=== PATIENT | female | born 1955 | race Caucasian/White ===

== ENCOUNTER 2018-10-10 22:53 | Emergency (ER) | payer OTHER ==
--- NOTE | 2018-10-10 23:22 | ED ---
Syncope HPI - General Chief Complaint: Syncope Stated Complaint: Syncope Time Seen by Provider: 10/10/18 23:05 Source: patient Mode of arrival: wheelchair Limitations: no limitations - History of Present Illness Initial Comments: This patient is a 63-year-old woman brought to have evaluation of a syncopal episode. The patient relates that she had been at a wedding tonight, when she developed what she calls a charley horse of her left leg. She states that she was sitting in a chair attempting to stretch the left leg when she started feeling lightheaded and then did briefly pass out. She states that her son had lowered her to the ground from the chair. She did not have any fall or trauma. She woke after a brief time with no postictal period. Patient did not have chest pain, palpitations, dyspnea or diaphoresis. She states that she has pre viously had leg cramps somewhat to this going back for 2-3 months. She is not having any leg symptoms. Patient states she is back at her baseline and denies any symptoms now. MD Complaint: loss of consciousness Onset/Timin -: hour(s) Prodromal Symptoms: lightheaded -: second(s) Witnessed: yes - by bystander Injuries Sustained Associated with Event: None Current Symptoms: back to baseline Context: at rest Treatments Prior to Arrival: none - Related Data Home Medications Medication Instructions Recorded Confirmed metFORMIN HCL ER [Glucophage Xr] 500 mg PO W/SUPPER 10/10/18 10/10/18 Allergies Allergy/AdvReac Type Severity Reaction Status Date / Time No Known Allergies Allergy Verified 10/10/18 23:21 Review of Systems ROS Statement: Those systems with pertinent positive or pertinent negative responses have been documented in the HPI. ROS Other: All systems not noted in ROS Statement are negative. Constitutional: Denies: fever, chills, weakness Respiratory: Denies: cough, dyspnea Cardiovascular: Reports: as per HPI, syncope. Denies: chest pain, palpitations, orthopnea, edema Gastrointestinal: Denies: abdominal pain, nausea, vomiting, diarrhea, constipation, melena, hematochezia Genitourinary: Denies: dysuria, frequency, hematuria Musculoskeletal: Reports: as per HPI, myalgia. Denies: back pain Skin: Denies: rash Neurological: Denies: headache, weakness, numbness, paresthesias, confusion Past Medical History Past Medical History: Diabetes Mellitus Additional Past Medical History / Comment(s): HX OF POLPS, History of Any Multi-Drug Resistant Organisms: None Reported Past Surgical History: Hysterectomy Past Anesthesia/Blood Transfusion Reactions: No Reported Reaction Past Psychological History: No Psychological Hx Reported Smoking Status: Never smoker Past Alcohol Use History: Occasional Past Drug Use History: None Reported - Past Family History Mother Family Medical History: Cancer Additional Family Medical History / Comment(s): LUNG General Exam Limitations: no limitations General appearance: alert, in no apparent distress Head exam: Present: atraumatic, normocephalic Eye exam: Present: normal appearance. Absent: scleral icterus, conjunctival injection ENT exam: Present: normal oropharynx Neck exam: Present: normal inspection Respiratory exam: Present: normal lung sounds bilaterally. Absent: respiratory distress, wheezes, rales, rhonchi, stridor Cardiovascular Exam: Present: regular rate, normal rhythm, normal heart sounds. Absent: systolic murmur, diastolic murmur, rubs, gallop GI/Abdominal exam: Present: soft. Absent: distended, tenderness, guarding, rebound, rigid Extremities exam: Present: normal inspection, normal capillary refill. Absent: tenderness, pedal edema, calf tenderness Back exam: Present: normal inspection. Absent: CVA tenderness (R), CVA tenderness (L) Neurological exam: Present: alert, oriented X3, CN II-XII intact. Absent: motor sensory deficit Skin exam: Present: warm, dry, intact, normal color. Absent: rash Course Vital Signs 10/10/18 22:58 Temperature 98.1 F Pulse Rate 85 Respiratory 17 Rate Blood Pressure 204/86 O2 Sat by Pulse 97 Oximetry EKG Findings - EKG Results: EKG: interpreted by ERMD, sinus rhythm (Rate 85 bpm), normal axis, normal QRS, normal ST/T Medical Decision Making - Medical Decision Making Discussed results with patient's and discussed admission for telemetry monitoring and serial cardiac enzymes, but the patient states that she continues to feel well and would like to go home. She will follow with her physician. Discussed having a stress test. Discussed return parameters. Patient denying urinary tract infection symptoms therefore will culture urine and have her follow with her physician - Lab Data Result diagrams: 10/10/18 23:50 10/10/18 23:50 Lab Results 10/10/18 10/10/1819 Range/Units 23:50 23:50 23:50 WBC 10.0 (3.8-10.6) k/uL RBC 4.93 (3.80-5.40) m/uL Hgb 13.8 (11.4-16.0) gm/dL Hct 41.9 (34.0-46.0) % MCV 84.9 (80.0-100.0) fL MCH 28.1 (25.0-35.0) pg MCHC 33.0 (31.0-37.0) g/dL RDW 13.6 (11.5-15.5) % Plt Count 202 (150-450) k/uL Neutrophils % 75 % Lymphocytes % 17 % Monocytes % 5 % Eosinophils % 1 % Basophils % 0 % Neutrophils # 7.5 (1.3-7.7) k/uL Lymphocytes # 1.7 (1.0-4.8) k/uL Monocytes # 0.5 (0-1.0) k/uL Eosinophils # 0.1 (0-0.7) k/uL Basophils # 0.0 (0-0.2) k/uL PT 10.1 (9.0-12.0) sec INR 0.9 (<1.2) APTT 22.1 (22.0-30.0) sec D-Dimer 0.29 (<0.60) mg/L FEU Sodium 141 (137-145) mmol/L Potassium 4.3 (3.5-5.1) mmol/L Chloride 104 (98-107) mmol/L Carbon Dioxide 26 (22-30) mmol/L Anion Gap 11 mmol/L BUN 19 H (7-17) mg/dL Creatinine 0.89 (0.52-1.04) mg/dL Est GFR (CKD-EPI)AfAm 80 (>60 ml/min/1.73 sqM) Est GFR (CKD-EPI)NonAf 69 (>60 ml/min/1.73 sqM) Glucose 208 H (74-99) mg/dL Calcium 9.6 (8.4-10.2) mg/dL Total Bilirubin 0.3 (0.2-1.3) mg/dL AST 23 (14-36) U/L ALT 27 (9-52) U/L Alkaline Phosphatase 65 (38-126) U/L Troponin I (0.000-0.034) ng/mL Total Protein 6.8 (6.3-8.2) g/dL Albumin 4.2 (3.5-5.0) g/dL Urine Color Urine Appearance (Clear) Urine pH (5.0-8.0) Ur Specific [place] (1.001-1.035) Urine Protein (Negative) Urine Glucose (UA) (Negative) Urine Ketones (Negative) Urine Blood (Negative) Urine Nitrite (Negative) Urine Bilirubin (Negative) Urine Urobilinogen (<2.0) mg/dL Ur Leukocyte Esterase (Negative) Urine RBC (0-5) /hpf Urine WBC (0-5) /hpf Ur Squamous Epith Cells (0-4) /hpf Calcium Oxalate Crystal (None) /hpf Urine Bacteria (None) /hpf Urine Mucus (None) /hpf Serum Alcohol <10 mg/dL 10/10/18 10/10/18 Range/Units 23:50 23:50 WBC (3.8-10.6) k/uL RBC (3.80-5.40) m/uL Hgb (11.4-16.0) gm/dL Hct (34.0-46.0) % MCV (80.0-100.0) fL MCH (25.0-35.0) pg MCHC (31.0-37.0) g/dL RDW (11.5-15.5) % Plt Count (150-450) k/uL Neutrophils % % Lymphocytes % % Monocytes % % Eosinophils % % Basophils % % Neutrophils # (1.3-7.7) k/uL Lymphocytes # (1.0-4.8) k/uL Monocytes # (0-1.0) k/uL Eosinophils # (0-0.7) k/uL Basophils # (0-0.2) k/uL PT (9.0-12.0) sec INR (<1.2) APTT (22.0-30.0) sec D-Dimer (<0.60) mg/L FEU Sodium (137-145) mmol/L Potassium (3.5-5.1) mmol/L Chloride (98-107) mmol/L Carbon Dioxide (22-30) mmol/L Anion Gap mmol/L BUN (7-17) mg/dL Creatinine (0.52-1.04) mg/dL Est GFR (CKD-EPI)AfAm (>60 ml/min/1.73 sqM) Est GFR (CKD-EPI)NonAf (>60 ml/min/1.73 sqM) Glucose (74-99) mg/dL Calcium (8.4-10.2) mg/dL Total Bilirubin (0.2-1.3) mg/dL AST (14-36) U/L ALT (9-52) U/L Alkaline Phosphatase (38-126) U/L Troponin I <0.012 (0.000-0.034) ng/mL Total Protein (6.3-8.2) g/dL Albumin (3.5-5.0) g/dL Urine Color Yellow Urine Appearance Cloudy H (Clear) Urine pH 5.5 (5.0-8.0) Ur Specific [place] 1.026 (1.001-1.035) Urine Protein Trace H (Negative) Urine Glucose (UA) 1+ H (Negative) Urine Ketones Negative (Negative) Urine Blood Negative (Negative) Urine Nitrite Negative (Negative) Urine Bilirubin Negative (Negative) Urine Urobilinogen <2.0 (<2.0) mg/dL Ur Leukocyte Esterase Large H (Negative) Urine RBC 2 (0-5) /hpf Urine WBC 49 H (0-5) /hpf Ur Squamous Epith Cells 6 H (0-4) /hpf Calcium Oxalate Crystal Moderate H (None) /hpf Urine Bacteria Rare H (None) /hpf Urine Mucus Rare H (None) /hpf Serum Alcohol mg/dL Disposition Clinical Impression: Syncope Disposition: HOME SELF-CARE Condition: Good Instructions (If sedation given, give patient instructions): Syncope (ED) Is patient prescribed a controlled substance at d/c from ED?: No Referrals: Yulia Peters MD [Primary Care Provider] - 1-2 days
[2018-10-11 00:11] LABS: Basophils % (A) 0 %; Eosinophils # (A) 0.1 k/uL (0-0.7); Eosinophils % (A) 1 %; HCT 41.9 % (34.0-46.0); HGB 13.8 gm/dL (11.4-16.0); Lymphocytes # (A) 1.7 k/uL (1.0-4.8); Lymphocytes % (A) 17 %; MCH 28.1 pg (25.0-35.0); MCV 84.9 fL (80.0-100.0); Mean Platelet Volume 7.5; Monocytes # (A) 0.5 k/uL (0-1.0); Monocytes % (A) 5 %; Neutrophils # (A) 7.5 k/uL (1.3-7.7); Neutrophils % (A) 75 %; Platelet Count 202 k/uL (150-450); RBC 4.93 m/uL (3.80-5.40); RDW 13.6 % (11.5-15.5)
[2018-10-11 00:24] LABS: ALT 27 U/L (9-52); AST 23 U/L (14-36); African American GFR (CKD) 80 (>60 ml/min/1.73 sqM); Albumin 4.2 g/dL (3.5-5.0); Alcohol <10 mg/dL; Alkaline Phosphatase 65 U/L (38-126); Anion Gap 11 mmol/L; Blood Urea Nitrogen 19 mg/dL (7-17); Calcium 9.6 mg/dL (8.4-10.2); Carbon Dioxide 26 mmol/L (22-30); Chloride 104 mmol/L (98-107); Glucose 208 mg/dL (74-99); Potassium 4.3 mmol/L (3.5-5.1); Sodium 141 mmol/L (137-145); Total Bilirubin 0.3 mg/dL (0.2-1.3); Total Protein 6.8 g/dL (6.3-8.2)
[2018-10-11 00:32] LABS: D-Dimer 0.29 mg/L FEU (<0.60); INR 0.9 (<1.2); Prothrombin Time 10.1 sec (9.0-12.0)
[2018-10-11 00:33] LABS: Appearance,Urine Cloudy (Clear); Bacteria,Urine Rare /hpf; Bilirubin,Urine Negative (Negative); Blood,Urine Negative (Negative); Calcium Oxalate Crystals,Urine Moderate /hpf; Color,Urine Yellow; Glucose,Urine (UA) 1+ (Negative); Ketones,Urine Negative (Negative); Leukocyte Esterase,Urine Large (Negative); Mucus,Urine Rare /hpf; Nitrite,Urine Negative (Negative); PH, Urine 5.5 (5.0-8.0); Partial Thromboplastin Time 22.1 sec (22.0-30.0); Protein,Urine Trace (Negative); RBC,Urine 2 /hpf (0-5); Specific Gravity,Urine 1.026 (1.001-1.035); Squamous Epithelial Cell,Urine 6 /hpf (0-4); Urobilinogen,Urine <2.0 mg/dL (<2.0); WBC,Urine 49 /hpf (0-5)
--- NOTE | 2018-10-11 00:52 | XR ---
EXAM: XR Chest, 1 View CLINICAL HISTORY: syncope TECHNIQUE: Frontal view of the chest. COMPARISON: No relevant prior studies available. FINDINGS: Lungs: Hypoventilatory lungs. Nonspecific left basilar opacity. Pleural space: Unremarkable. No pneumothorax. Heart: Prominent of the cardiomediastinal silhouette is likely in part due to low lung volumes. Mediastinum: See above. Bones/joints: No acute osseous abnormality. IMPRESSION: Hypoventilatory lungs. Probable left basilar atelectasis.
[2018-10-11 02:26] VITALS: BP 145/78
[2018-10-11 02:34] VITALS: PULSE 86; RESP 18; TEMP 97.3
== END 2018-10-11 02:34 | disposition home or self-care (01) ==
LOC: EC 22:53
DX: R55 Syncope and collapse (principal); M62.831 Muscle spasm of calf; E11.9 Type 2 diabetes mellitus without complications; Z79.84 Long term (current) use of oral hypoglycemic drugs
CPT/HCPCS: 36415; 71045; 80053; 80320; 81001; 84484; 85025; 85379; 85610; 85730; 93005; 99284

== ENCOUNTER → 2018-11-03 | Outpatient (CLI) | payer OTHER ==
--- NOTE | 2018-11-04 13:53 | MM ---
Reason for exam: screening (asymptomatic). Last mammogram was performed 1 year and 8 months ago. History: Patient is postmenopausal. Taking estrogen beginning at age 47. Taking progesterone beginning at age 47. Physical Findings: A clinical breast exam by your physician is recommended on an annual basis and results should be correlated with mammographic findings. MG Screening Mammo w CAD Bilateral CC and MLO view(s) were taken. Prior study comparison: March 17, 2017, bilateral MG screening mammo w CAD. January 09, 2015, bilateral MG screening mammo w CAD. There are scattered fibroglandular densities. There is chronic nodularity in the left breast. There is no discrete abnormality. ASSESSMENT: Negative, BI-RAD 1 RECOMMENDATION: Routine screening mammogram of both breasts in 1 year.
== END | disposition home or self-care (01) ==
LOC: RADMAMWWP 08:05
PROVIDERS: ATTEND Family Medicine
DX: Z12.31 Encounter for screening mammogram for malignant neoplasm of breast (principal)
CPT/HCPCS: 77067

== ENCOUNTER → 2018-11-25 | Outpatient (CLI) | payer OTHER ==
[~2018-11-25] MED LIST: REGADENOSON 0.4 MG/5 ML SYRINGE IV ONE
--- NOTE | 2018-11-25 12:32 | NM ---
EXAMINATION TYPE: NM stress lexiscan cardiolite DATE OF EXAM: 11/25/2018 COMPARISON: NONE HISTORY: TECHNIQUE: After the intravenous administration of 10.95 mCi Tc 99m Sestamibi - Cardiolite resting S PECT images acquired 50 minutes post injection. The patient received 0.4mg Lexiscan, 26.6 mCi Tc 99m Sestamibi - Stress images obtained [address] injection FINDINGS: Review of stress and rest SPECT images demonstrate reduced uptake involving the anterior and apical p ortions of the myocardium on stress imaging.. Gated analysis shows normal wall motion with an estima farheen left ventricular ejection fraction of 59 %. IMPRESSION: 1. Asymmetric uptake involving the anterior and anterior apical myocardium on stress imaging may be a rtifactual. Stress-induced ischemia not entirely excluded correlate clinically..
--- NOTE | 2018-11-25 13:06 | EST ---
EXERCISE STRESS DATE OF SERVICE: 11/25/2018 AGE: 63 SEX: Female HT: 5'5" WT: 210 PROTOCOL: Lexiscan Cardiolite STAGE: DURATION OF EXERCISE: HEART RATE REST: 67 BLOOD PRESSURE REST: 171/93 MAXIMUM HEART RATE ACHIEVED: 104 MAXIMUM BLOOD PRESSURE: 183/83 85% MPHR: 100% MPHR: METS: INDICATIONS: CLINICAL INFORMATION: There is an Lexiscan Cardiolite stress test baseline. Baseline heart rate 67 beats per minute. Baseline blood pressure 171/93 mmHg. Baseline 12-lead ECG showed normal sinus rhythm with normal cardiac intervals. Patient received Lexiscan infusion per protocol. She complained of tightness in the chest. There was no ECG evidence for ischemia. No arrhythmias were noted. Nuclear portion of the stress test will be reported separately. MMODL / IJN: [id number] /
== END ==
LOC: RADNMMAIN 08:49
PROVIDERS: ATTEND Family Medicine
DX: R93.1 Abnormal findings on diagnostic imaging of heart and coronary circulation (principal)
CPT/HCPCS: 93017; 78452; A9500; J2785

== ENCOUNTER → 2018-11-30 | Outpatient (CLI) | payer OTHER ==
--- NOTE | 2018-11-30 22:51 | MR ---
EXAMINATION TYPE: MR knee RT wo con DATE OF EXAM: 11/30/2018 COMPARISON: NONE HISTORY: Pain in right knee. In her knee pain for 3 weeks per patient. TECHNIQUE: Multiplanar, multisequence images of the knee is performed without IV contrast. FINDINGS: MEDIAL MENISCUS: Anterior horn is intact without tear. Oblique and horizontal increased signal remotely piloted vehicle controller ior horn medial meniscus extends to inferior articular surface sagittal image 8 LATERAL MENISCUS: Anterior and posterior horns are intact without tear. CRUCIATE LIGAMENTS: The anterior and posterior cruciate ligaments are intact and unremarkable. COLLATERAL LIGAMENTS: The medial collateral ligament and lateral collateral ligament complex are inta ct. Some fluid signal surrounds posterior fibers of the medial collateral ligament extends posteriorl y. EXTENSOR MECHANISM: Visualized quadriceps and patellar tendons are intact. EFFUSION: Small suprapatellar joint effusion. POPLITEAL CYST: Moderate to large size popliteal/matthews cyst measuring over 8.0 cm long axis sagittal image 10. TRICOMPARTMENT SPACES: Tngq-qz-vqgfldty tricompartment joint space loss with mild spurring. CARTILAGE: Significant chondromalacia patella with full-thickness cartilaginous loss and posterior pa tellar pole and adjacent trochlear articulation. BONE MARROW SIGNAL: No focal abnormal marrow signal is appreciated. OTHER: No additional significant abnormality is appreciated. IMPRESSION: 1. Full-thickness tear posterior horn medial meniscus. 2. Mild to moderate tricomponent degenerative changes most prominent patellofemoral compartment as de tailed above. No reactive osseous changes noted. 3. Moderate to large size popliteal cyst. 4. Mild MCL sprain injury. 5. Small suprapatellar joint effusion.
== END | disposition home or self-care (01) ==
LOC: RADMRIMAIN 05:50
PROVIDERS: ATTEND Family Medicine
DX: S83.241A Other tear of medial meniscus, current injury, right knee, initial encounter (principal); M89.8X6 Other specified disorders of bone, lower leg; S83.411A Sprain of medial collateral ligament of right knee, initial encounter

== ENCOUNTER → 2018-12-22 | Outpatient (CLI) | payer OTHER ==
--- NOTE | 2018-12-22 13:00 | XR ---
Right knee HISTORY: Knee pain 3 views of the right knee Correlation to knee MRI dated 11/30/2018 Marginal spurring present at the medial compartment. Remodeling in the medial compartment, joint spac e loss at the patellofemoral joint compatible with underlying osteoarthritis. Suprapatellar increased density compatible with small joint effusion. The meniscal tear extending to the region of the root anchor at the posterior horn seen on MRI not appreciated on plain film. Alignment is maintained. No f racture or dislocation. Small possible loose body present at the level of the intercondylar spines li wing present on MRI. IMPRESSION: Osteoarthritis, small loose bodies, joint effusion, additional findings above.
== END | disposition home or self-care (01) ==
LOC: RADXRMAIN 08:30
PROVIDERS: ATTEND Orthopaedic Surgery
DX: M17.11 Unilateral primary osteoarthritis, right knee (principal)

== ENCOUNTER → 2019-01-25 | Outpatient (CLI) | payer OTHER ==
[2019-01-25 13:13] LABS: Basophils % (A) 0 %; Eosinophils # (A) 0.1 k/uL (0-0.7); Eosinophils % (A) 2 %; HGB 14.5 gm/dL (11.4-16.0); Lymphocytes # (A) 2.2 k/uL (1.0-4.8); Lymphocytes % (A) 37 %; MCH 28.9 pg (25.0-35.0); MCHC 33.1 g/dL (31.0-37.0); MCV 87.4 fL (80.0-100.0); Mean Platelet Volume 6.9; Monocytes # (A) 0.3 k/uL (0-1.0); Monocytes % (A) 5 %; Neutrophils # (A) 3.3 k/uL (1.3-7.7); Neutrophils % (A) 54 %; Platelet Count 194 k/uL (150-450); RBC 5.03 m/uL (3.80-5.40); RDW 13.1 % (11.5-15.5); WBC 6.1 k/uL (3.8-10.6)
[2019-01-25 13:28] LABS: Potassium 4.6 mmol/L (3.5-5.1)
== END | disposition home or self-care (01) ==
LOC: LABPAT 12:10
PROVIDERS: ATTEND Orthopaedic Surgery
DX: Z01.812 Encounter for preprocedural laboratory examination (principal); Z01.818 Encounter for other preprocedural examination; M23.91 Unspecified internal derangement of right knee
CPT/HCPCS: 36415; 80051; 85025

== ENCOUNTER 2019-01-28 11:45 | Day surgery (SDC) | payer OTHER ==
[2019-01-25 15:13] VITALS: BMI 34.9
--- NOTE | 2019-01-27 13:33 | HP ---
HISTORY AND PHYSICAL Surgery is 01/28/2019. Ana Redding is a 63-year-old patient seen with progressive right knee pain. We discussed options for treatment. She elected to proceed with right knee arthroscopy. Consent was obtained. PAST MEDICAL HISTORY: Her past medical history is [id number]-wadbhnnzc diabetes. PAST SURGICAL HISTORY: Hysterectomy. DAILY MEDICATIONS: 1. Metformin. 2. Vitamins. ALLERGIES: None. SOCIAL HISTORY: She denies current tobacco use. PHYSICAL EXAMINATION: Physical evaluation of the right knee: Range of motion 0-130. Mild effusion. Tenderness medial joint line. Positive medial Maxi's. Ligaments stable. Hip rotation without pain. Distal neurovascular exam intact. Right knee radiographs revealed moderate medial compartment osteoarthritis. An MRI of the right knee revealed a medial meniscal tear and osteoarthritic changes. IMPRESSION: 1. Internal derangement right knee with medial meniscal tear. 2. Right knee osteoarthritis. 3. Lek-bfmuzuw-zoncwujvu diabetes. PLAN: Right knee arthroscopy with partial meniscectomy and debridement. MMODL / IJN: [id number] /
[~2019-01-28 11:45] MED LIST changes: +DEXAMETHASONE SOD PHOSPHATE 10 MG/ML 1 ML VIAL IV ONE; +LACTATED RINGERS 1,000 ML IV SCH; +MIDAZOLAM 2 MG/2 ML VIAL IV PRN; +ONDANSETRON 4 MG/2 ML VIAL IVP ONE; -REGADENOSON 0.4 MG/5 ML SYRINGE IV ONE
[2019-01-28] MEDS ORDERED: LIDOCAINE 1% 20 ML VIAL (10MG/ML) FOR IV START INTRADERMA ONE (12:12)
[2019-01-28 12:17] LABS: Glucose,Whole Blood 125 mg/dL (75-99)
[2019-01-28] MEDS ORDERED: LABETALOL 5 MG/ML VIAL MDV IV ONE ×2 (12:29→13:51)
[2019-01-28] MEDS ORDERED: LIDOCAINE 1% INJ 10MG/ML (20 ML MDV) ONE (12:36)
[2019-01-28] MEDS ORDERED: fentaNYL (PF) 50 MCG/ML 2 ML AMP ONE (12:36)
[2019-01-28] MEDS ORDERED: PROPOFOL 10 MG/ML 20 ML VIAL IV ONE (12:36)
[2019-01-28] MEDS ORDERED: MIDAZOLAM 2 MG/2 ML VIAL ONE (12:36)
[2019-01-28] MEDS ORDERED: BUPIVACAINE (PF) 0.25% 30 ML VIAL INTRAARTIC ONE (12:57)
[2019-01-28] MEDS: HYDROmorphone 0.5 MG/0.5 ML SYRINGE IVP PRN ×2 (13:25→13:37)
--- NOTE | 2019-01-28 13:28 | P.OP ---
Date of Procedure: 01/28/19 Preoperative Diagnosis: Internal derangement right knee Postoperative Diagnosis: 1. Tear medial meniscus right knee 2. Grade 2 chondromalacia medial femoral condyle right knee 3. Grade 3 chondromalacia patella right knee 4. Medial plica right knee 5. Reactive synovitis medial, lateral and suprapatellar compartments right knee Procedure(s) Performed: 1. Arthroscopic partial medial meniscectomy right knee 2. Arthroscopic chondroplasty medial femoral condyle right knee 3. Arthroscopic chondroplasty patella right knee 4. Arthroscopic partial synovectomy medial, lateral and suprapatellar compartments right knee 5. Arthroscopic resection medial plica right knee Anesthesia: ELOYA, local Surgeon: Lamine Stanley Estimated Blood Loss (ml): 5 Pathology: none sent Condition: stable Disposition: PACU Indications for Procedure: 63-year-old patient seen with progressive right knee pain. After having treatment options discussed, she elected to proceed with arthroscopy. Operative Findings: See description of procedure Description of Procedure: Patient was taken to the operative suite. Patient underwent a general anesthetic by the department of anesthesia. Patient was given preoperative antibiotics. The right lower extremity was placed in a well-padded arthroscopic leg quevedo. The right leg was prepped and draped in the normal sterile orthopedic fashion. A lateral parapatellar incision was made. Trochar was inserted. Arthroscopy was initiated. Suprapatellar pouch revealed diffuse thick reactive synovitis. The patellofemoral joint appeared to articulate congruently. There as grade 3 chondromalacia with diffuse osteochondral tears present. The scope was guided into the medial gutter. There was a plica along the medial gutter which did seem to impinge along the medial femoral condyle with range of motion. The scope was then guided into the medial compartment. A medial parapatellar incision was made. Trocar inserted followed by probe. There was a complex tear involving the posterior horn medial meniscus. There were grade 2 chondromalacia changes of the medial femoral condyle with osteochondral flap tears present. There was thick reactive synovitis anteriorly. I performed a partial medial meniscectomy down to stable tissue. I performed a chondroplasty of the medial femoral condyle down to stable tissue. I performed a partial synovectomy decompressing the thick reactive synovitis. The residual meniscus was stable. There was good decompression of synovitis. There was good stability about the residual osteochondral surface medial femoral condyle. Scope and probe were then guided into the intercondylar notch. Cruciates were identified, probed and found to be stable. The scope and probe were then guided into lateral compartment. The lateral meniscus was probed and found to be stable. There were mild grade 1 chondromalacia changes lateral compartment. There were no osteochondral flap tears present. There was thick reactive synovitis anteriorly. I introduced a motorized shaver and performed a partial synovectomy decompressing reactive synovitis. The shaver was removed. There was good decompression of the synovitis. The scope was in guided back into the suprapatellar compartment. I introduced a motorized shaver into the suprapatellar compartment. I debrided some piecemeal fragments of meniscus I encountered. I performed a partial synovectomy decompressing the thick reactive synovitis. I performed a chondroplasty of the patella. I did resected that medial plica. The shaver was removed. I took the knee through range of motion noted complete resection of the plica with no impingement of the medial femoral condyle. The residual osteochondral surface of the patella. Stable. There was good decompression of synovitis. I took one more look on the entire knee, no residual debris. Instruments were now removed from the joint. The joint was infiltrated with .25% Marcaine. Steri-Strips were applied to the portal sites. Sterile dressings were applied. The patient was placed into a COTY hose. No tourniquet was utilized. The patient was awakened, transferred to a bed and taken to recovery stable satisfactory condition.
[2019-01-28 13:35] VITALS: TEMP 97.2
[2019-01-28 14:03] VITALS: RESP 16
[2019-01-28] MEDS ORDERED: HYDROcodone/APAP 5-325MG 1 EACH TAB PO ONE (14:59)
[2019-01-28 15:14] VITALS: BP 160/84; PULSE 71
--- NOTE | 2019-02-03 07:58 | CDI ---
Date: 02.03.19 CDS/Lead Oracle Developer Name: Tami Bailey Phone: If any questions, call Ruby Cabrera Flame Hardening Machine Setter at [phone] Patient Name: Ana Redding Admit Date: 01.28.19 Discharge Date: 01.28.19 ATTENTION: The [facility] Coding Staff appreciate your assistance in clarifying documentation. Please respond to the clarification below the line at the bottom and electronically sign. The [facility] Coding Staff will review the response and follow-up if needed. Please note: Queries are made part of the Legal Health Record. If you have any questions, please contact the Flame Hardening Machine Setter. Dear Dr. Stanley Please specify whether the meniscus tear is an acute traumatic injury or a chronic or recurrent condition. Thank you for your consideration. I don't know MTDD
== END 2019-01-28 16:08 | disposition home or self-care (01) ==
LOC: OR 11:45
PROVIDERS: ATTEND Orthopaedic Surgery
DX: S83.231A Complex tear of medial meniscus, current injury, right knee, initial encounter (principal); M94.261 Chondromalacia, right knee; M22.41 Chondromalacia patellae, right knee; M67.51 Plica syndrome, right knee; M65.861 Other synovitis and tenosynovitis, right lower leg; M17.11 Unilateral primary osteoarthritis, right knee; E11.9 Type 2 diabetes mellitus without complications; Z79.84 Long term (current) use of oral hypoglycemic drugs; Z90.710 Acquired absence of both cervix and uterus; X58.XXXA Exposure to other specified factors, initial encounter
CPT/HCPCS: 29881; 29876; J2250; J1100; J0690; J2405; J2001; J3010; J2704; J1170

== ENCOUNTER 2019-03-19 07:10 | Day surgery (SDC) | payer OTHER ==
[2018-11-30 09:40] VITALS: BMI 34.9
[~2019-03-19 07:10] MED LIST changes: -DEXAMETHASONE SOD PHOSPHATE 10 MG/ML 1 ML VIAL IV ONE; +LIDOCAINE 1% 20 ML VIAL (10MG/ML) FOR IV START INTRADERMA PRN; -MIDAZOLAM 2 MG/2 ML VIAL IV PRN; -ONDANSETRON 4 MG/2 ML VIAL IVP ONE
[2019-03-19 07:34] VITALS: RESP 16; TEMP 97.9
[2019-03-19 07:42] LABS: Glucose,Whole Blood 180 mg/dL (75-99)
[2019-03-19 07:45] LABS: Glucose,Whole Blood 176 mg/dL (75-99)
[2019-03-19] MEDS ORDERED: LIDOCAINE 1% INJ 10MG/ML (20 ML MDV) ONE (07:52)
[2019-03-19] MEDS ORDERED: PROPOFOL 10 MG/ML 20 ML VIAL IV ONE (07:52)
--- NOTE | 2019-03-19 08:15 | P.PCN ---
Date of Procedure: 03/19/19 Procedure(s) Performed: BRIEF HISTORY: Patient is a 63-year-old pleasant made scheduled for an elective colonoscopy as a part of evaluation of prior history of colon polyps. Last colonoscopy was 3 years ago. PROCEDURE PERFORMED: Colonoscopy with snare polypectomy . PREOPERATIVE DIAGNOSIS: [ history of colon polyps IV sedation per Anesthesia. PROCEDURE: After informed consent was obtained, the patient, was brought into the endoscopy unit. IV sedation was administered by Anesthesia under continuous monitoring. Digital rectal examination was normal. Initially the Olympus CF-160 flexible video colonoscope was then inserted in the rectum, gradually advanced into the cecum without any difficulty. Careful examination was performed as the scope was gradually being withdrawn. Ileocecal valve and the appendiceal orifice were visualized and appeared normal. and just with appendiceal orifice there w as a 1.5 and admitted broad-based polyp that was removed by piecemeal snare polypectomy. Prep was excellent. Mucosa of the cecum, ascending colon, transverse colon, descending colon, sigmoid colon, and rectum appeared normal. scattered sigmoidal the closest seen. Retroflexion was performed in the rectum and no lesions were seen. The patient tolerated the procedure well. IMPRESSION: 1.5 cm broad-based cecal polyp adjacent to the appendiceal orifice status post piecemeal snare polypectomy Scattered sigmoidal diagnosis RECOMMENDATIONS: Findings of this examination were discussed with the patient as well as his family. She was advised to follow with the biopsy results. If the biopsy shows an adenoma she can have a repeat colonoscopy in 3 years
[2019-03-19 08:30] VITALS: BP 150/89; PULSE 76
--- NOTE | 2019-03-24 11:20 | CDI ---
Outpatient Documentation Clarification Form Date: 03/24/19 CDS/Seasonal Driver Name: Sana Huntley Phone: If any questions, call Ruby Cabrera Head Machinist at [phone] Patient Name: Ana Redding Admit Date 03/19/19 Discharge Date: 03/19/19 ATTENTION: The [facility] Coding Staff appreciate your assistance in clarifying documentation. Please respond to the clarification below the line at the bottom and electronically sign. The [facility] Coding staff with review the response and follow up if needed. Please Note: Queries are made part of the Legal Health Record. If you have any questions, please contact the Head Machinist, Dear Dr. Dang, Please provide clarification as to the condition in the sigmoid colon. Operative note in one place states Scattered sigmoidal the closest seen. In another place it is stated "Scattered sigmoidal diagnosis". Please clarify. Thank you for your kind consideration. _ MTDD
== END 2019-03-19 09:04 | disposition home or self-care (01) ==
LOC: ORWHC2ENDO 07:10
PROVIDERS: ATTEND Internal Medicine Gastroenterology
DX: Z12.11 Encounter for screening for malignant neoplasm of colon (principal); K63.5 Polyp of colon; K57.30 Diverticulosis of large intestine without perforation or abscess without bleeding; Z86.010 Personal history of colon polyps; I10 Essential (primary) hypertension; E11.9 Type 2 diabetes mellitus without complications; Z90.710 Acquired absence of both cervix and uterus; Z98.51 Tubal ligation status; Z79.84 Long term (current) use of oral hypoglycemic drugs; Z79.899 Other long term (current) drug therapy
CPT/HCPCS: 45385; 88305; J2001; J2704

== ENCOUNTER 2019-12-31 18:03 | Emergency (ER) | payer OTHER ==
[2019-12-31 18:08] VITALS: BP 192/85; PULSE 69; RESP 16; TEMP 97.8
[2019-12-31] MEDS ORDERED: oxyCODONE-APAP 7.5-325MG 1 EACH TAB PO STA (19:10)
--- NOTE | 2019-12-31 19:13 | ED ---
General Adult HPI - General Chief complaint: Extremity Injury, Lower Stated complaint: Knee injury Time Seen by Provider: 12/31/19 18:54 Source: patient Mode of arrival: wheelchair Limitations: no limitations - History of Present Illness Initial comments: Dictation was produced using gis.to dictation software. please excuse any grammatical, word or spelling errors. This patient was cared for during a federal and state declared state of emergency secondary to Covid 19 Chief Complaint: 64-year-old female presents with knee pain. History of Present Illness: 64 yo female presents with left knee pain. Patient states 2 weeks ago she was walking her dog when she stepped into a hole with her left foot. She then twisted her knee. Since then patient has been having worsening knee pain. She states that it didn't really feel swollen. She has history of chronic knee problems bilaterally. She did need a meniscal repair on her right knee was done by Dr. Sim. Patient denies any fever, chills or night sweats. She states she does not have pain which is not moving. Her pain is only apparent when she moves her legs. She states that her whole knee hurts. She denies any Pain. Denies any medial thigh pain. Patient is very anxious because her daughter's wedding is in one week. She states the whole wedding planning experience has been horrendous because of all of the [place] virus restrictions. She is also worried that she will not be able to enjoy her daughter's wedding because of her pain. The ROS documented in this emergency department record has been reviewed and confirmed by me. Those systems with pertinent positive or negative responses have been documented in the HPI. All other systems are other negative and/or noncontributory. PHYSICAL EXAM: General Impression: Alert and oriented x3, not in acute distress HEENT: Normocephalic atraumatic, extra-ocular movements intact, pupils equal and reactive to light bilaterally, mucous membranes moist. Cardiovascular: Heart regular rate and rhythm Chest: Able to complete full sentences, no retractions, no tachypnea Abdomen: abdomen soft, non-tender, non-distended, no organomegaly Musculoskeletal: Pulses present and equal in all extremities, no peripheral edema Left knee: No effusion, tenderness with any sort of movement whether it's flexion-extension internal/external rotation Motor: no focal deficits noted Neurological: CN II-XII grossly intact, no focal motor or sensory deficits noted Skin: Intact with no visualized rashes Psych: Normal affect and mood ED course: 64-year-old feel presents with acute on chronic left knee pain after twisting motion 2 weeks ago while walking her dog. Vital signs upon arrival are within acceptable limits. Left knee x-ray shows no acute processes. Patient's clinical presentation concerning for soft tissue injury including ACL, PCL or meniscal tear. Patient does have an established orthopedic surgeon. She is urged to follow-up with her orthopedic surgeon for outpatient management of left knee pain. Patient given analgesia. She is warned of the adverse effects of these medications. She is agreeable with plan. - Related Data Home Medications Medication Instructions Recorded Confirmed metFORMIN HCL ER [Glucophage Xr] 1,000 mg PO W/SUPPER 10/10/18 01/28/19 Hydrochlorothiazide 12.5 mg PO DAILY 03/17/19 03/19/19 [hydroCHLOROthiazide] Latanoprostene Bunod [Vyzulta] 1 drop BOTH EYES HS 03/17/19 03/17/19 Losartan [Cozaar] 25 mg PO HS 03/17/19 03/19/19 Previous Rx's Medication Instructions Recorded HYDROcodone/APAP 5-325MG [[place] 1 tab PO Q4H PRN 3 Days #18 tab 12/31/19 5-325] Allergies Allergy/AdvReac Type Severity Reaction Status Date / Time No Known Allergies Allergy Verified 12/31/19 18:04 Review of Systems ROS Statement: Those systems with pertinent positive or pertinent negative responses have been documented in the HPI. ROS Other: All systems not noted in ROS Statement are negative. Past Medical History Past Medical History: Diabetes Mellitus, Eye Disorder, Hypertension Additional Past Medical History / Comment(s): HX OF POLPS,. GLAUCOMA History of Any Multi-Drug Resistant Organisms: None Reported Past Surgical History: Hysterectomy, Orthopedic Surgery, Tubal Ligation Additional Past Surgical History / Comment(s): LASER EYE SURGERY FOR GLAUCOMA. RT KNEE SX. COLONOSCOPY Past Anesthesia/Blood Transfusion Reactions: No Reported Reaction Past Psychological History: No Psychological Hx Reported Smoking Status: Never smoker Past Alcohol Use History: Occasional Past Drug Use History: None Reported - Past Family History Father Family Medical History: Cancer Additional Family Medical History / Comment(s): PROSTATE CANCER Mother Family Medical History: Cancer Additional Family Medical History / Comment(s): LUNG General Exam Limitations: no limitations Course Vital Signs 12/31/19 18:05 Temperature 97.8 F Pulse Rate 69 Respiratory 16 Rate Blood Pressure 192/85 O2 Sat by Pulse 99 Oximetry Disposition Clinical Impression: Knee pain Disposition: HOME SELF-CARE Condition: Good Instructions (If sedation given, give patient instructions): Knee Pain (ED) Additional Instructions: Follow-up with the orthopedic surgeon for outpatient management of left knee pain. Prescriptions: HYDROcodone/APAP 5-325MG [[place] 5-325] 1 tab PO Q4H PRN 3 Days #18 tab PRN Reason: Severe Pain Is patient prescribed a controlled substance at d/c from ED?: Yes If prescribed controlled substance>3 days was MAPS reviewed?: Prescribed <3 Days Referrals: Yulia Peters MD [Primary Care Provider] - 1-2 days Time of Disposition: 20:57
--- NOTE | 2019-12-31 19:53 | XR ---
EXAMINATION TYPE: XR knee 4V LT DATE OF EXAM: 12/31/2019 COMPARISON: NONE HISTORY: Pain TECHNIQUE: 4 views FINDINGS: I see no fracture nor dislocation. Joint spaces are normal. There is no sign of knee joint effusion. IMPRESSION: Negative left knee exam. No fracture.
== END 2019-12-31 21:25 | disposition home or self-care (01) ==
LOC: EC 18:03
DX: M25.562 Pain in left knee (principal); E11.9 Type 2 diabetes mellitus without complications; I10 Essential (primary) hypertension; Z79.84 Long term (current) use of oral hypoglycemic drugs; Z79.899 Other long term (current) drug therapy; X50.1XXA Overexertion from prolonged static or awkward postures, initial encounter; Y93.K1 Activity, walking an animal
CPT/HCPCS: 99283

== ENCOUNTER → 2020-06-26 | Day surgery (SDC) | payer MEDICARE ==
[2020-06-22 15:39] VITALS: BMI 35.7
--- NOTE | 2020-06-24 11:24 | P.GSHP ---
History of Present Illness H&P Date: 06/24/20 65 o female with a right 8mm upj that is symptomatic. She was given treament option and comes for eswl right - Constitutional Constitutional: Denies chills, Denies fever - EENT Eyes: denies blurred vision, denies pain Ears, nose, mouth and throat: Denies headache, Denies sore throat - Cardiovascular Cardiovascular: Denies chest pain, Denies shortness of breath - Respiratory Respiratory: Denies cough, Denies 7 - Gastrointestinal Gastrointestinal: Denies abdominal pain, Denies diarrhea, Denies nausea, Denies vomiting - Genitourinary (Female) Genitourinary: Denies dysuria, Denies hematuria - Genitourinary (Male) Genitourinary: Denies dysuria, Denies hematuria - Musculoskeletal Musculoskeletal: Denies myalgias - Integumentary Integumentary: Denies pruritus, Denies rash - Neurological Neurological: Denies numbness, Denies weakness - Psychiatric Psychiatric: Denies anxiety, Denies depression - Endocrine Endocrine: Denies fatigue, Denies weight change Past Medical History Past Medical History: Diabetes Mellitus, Eye Disorder, Hypertension Additional Past Medical History / Comment(s): HX OF COLON POLYPS, GLAUCOMA, KIDNEY STONES History of Any Multi-Drug Resistant Organisms: None Reported Past Surgical History: Hysterectomy, Orthopedic Surgery, Tubal Ligation Additional Past Surgical History / Comment(s): LASER EYE SURGERY FOR GLAUCOMA. RT KNEE SX. COLONOSCOPY Past Anesthesia/Blood Transfusion Reactions: No Reported Reaction Past Psychological History: No Psychological Hx Reported Smoking Status: Never smoker Past Alcohol Use History: Occasional Past Drug Use History: None Reported Additional Drug Use History / Comment(s): CBD WITH NO THC - Past Family History Father Family Medical History: Cancer Additional Family Medical History / Comment(s): PROSTATE CANCER Mother Family Medical History: Cancer Additional Family Medical History / Comment(s): LUNG Medications and Allergies Home Medications Medication Instructions Recorded Confirmed Type metFORMIN HCL ER [Glucophage Xr] 1,000 mg PO W/SUPPER 10/10/18 06/22/20 History Hydrochlorothiazide 12.5 mg PO DAILY 03/17/19 06/22/20 History [hydroCHLOROthiazide] Latanoprostene Bunod [Vyzulta] 1 drop BOTH EYES HS 03/17/19 06/22/20 History Losartan [Cozaar] 25 mg PO DAILY 03/17/19 06/22/20 History Ibuprofen 800 mg PO ONCE PRN 06/22/20 06/22/20 History Multivitamins, Thera [Multivitamin 1 tab PO DAILY 06/22/20 06/22/20 History (formulary)] Timolol Eye Gtts 1 drop BOTH EYES BID 06/22/20 06/22/20 History Allergies Allergy/AdvReac Type Severity Reaction Status Date / Time No Known Allergies Allergy Verified 06/22/20 15:16 Surgical - Exam - General well developed, well nourished - Eyes PERRL - ENT no hearing loss - Neck trachea midline - Respiratory normal expansion, normal respiratory effort - Cardiovascular Rhythm: regular - Abdomen Abdomen: soft, non tender - Neurologic normal coordination, normal sensation - Musculoskeletal normal gait, normal posture - Psychiatric oriented to time, oriented to person, oriented to place, speech is normal, memory intact Results - Imaging Abdominal x-ray: report reviewed, image reviewed CT scan - abdomen: report reviewed, image reviewed CT scan - pelvis: report reviewed, image reviewed Assessment and Plan Assessment: Impression; 8 MM RIGHT UPJ STONE Plan ESWL right
[~2020-06-26] MED LIST changes: +HYDROcodone/APAP 5-325MG 1 EACH TAB ONE; +HYDROcodone/APAP 5-325MG 1 EACH TAB PO ONE; +KETAMINE 10 MG/ML 20 ML VIAL ONE; -LIDOCAINE 1% 20 ML VIAL (10MG/ML) FOR IV START INTRADERMA PRN; +MIDAZOLAM 2 MG/2 ML VIAL ONE; +ONDANSETRON 4 MG/2 ML VIAL IVP ONE; +ONDANSETRON 4 MG/2 ML VIAL ONE; +PROPOFOL 10 MG/ML 20 ML VIAL IV ONE; +fentaNYL (PF) 50 MCG/ML 2 ML AMP ONE
[2020-06-26 10:35] VITALS: RESP 16; TEMP 97.7
[2020-06-26 10:39] LABS: Glucose,Whole Blood 169 mg/dL (75-99)
--- NOTE | 2020-06-26 11:18 | P.OP ---
Date of Procedure: 06/26/20 Preoperative Diagnosis: Right UPJ calculus Postoperative Diagnosis: Same Procedure(s) Performed: Right extracorporal shock wave lithotripsy (ESWL) Anesthesia: MAC Surgeon: Justin Stein Estimated Blood Loss (ml): 0 IV fluids (ml): 650 Pathology: none sent Condition: stable Disposition: PACU Indications for Procedure: The patient is a 65-year-old white female with an 8 mm right UPJ calculus. She is symptomatic and comes for ESWL. Operative Findings: Excellent fragmentation. Description of Procedure: The patient was taken to the operating room and placed on the DorniCatglobe Delta II lithotripter in the supine position. The calculus was seen on biplanar fluoroscopy. Once the patient was properly positioned and sedated, lithotripsy was performed. The energy level was gradually increased per protocol, to an energy level of 5. After 200 shocks were administered, a 2 minute pause was instituted per protocol. A total of 2000 shocks were given at a rate of 80 shocks per minute. Fluoroscopy was utilized at a minimum to ensure proper positioning and determine the treatment status. The calculus fragmented extremely well, and was only faintly visible at the completion of the procedure. The patient tolerated the procedure well was taken to the recovery room in stable condition. Instructions were given to strain the urine, and the patient will follow-up within one week.
[2020-06-26 12:08] VITALS: BP 163/85; PULSE 60
== END | disposition home or self-care (01) ==
LOC: ORWHC2ENDO 09:55
PROVIDERS: ATTEND Urology
DX: N20.1 Calculus of ureter (principal); E11.9 Type 2 diabetes mellitus without complications; I10 Essential (primary) hypertension; Z87.442 Personal history of urinary calculi; Z90.710 Acquired absence of both cervix and uterus; Z98.51 Tubal ligation status; Z98.890 Other specified postprocedural states; Z80.42 Family history of malignant neoplasm of prostate; Z80.1 Family history of malignant neoplasm of trachea, bronchus and lung; Z79.84 Long term (current) use of oral hypoglycemic drugs; Z79.899 Other long term (current) drug therapy
CPT/HCPCS: 50590; J2250; J2405; J3010; J2704

== ENCOUNTER → 2020-06-30 | Outpatient (CLI) | payer MEDICARE ==
--- NOTE | 2020-06-30 11:17 | XR ---
EXAMINATION TYPE: XR KUB DATE OF EXAM: 06/30/2020 COMPARISON: NONE HISTORY: Pain TECHNIQUE: One view abdominal series FINDINGS: The osseous structures are intact. The bowel gas pattern is nonspecific. Lung bases are clear. Calc ification right upper quadrant could be related to gallstone. There are numerous punctate calcifications overlying the lower pole of the right kidney measuring 10- 15 in number and less than 5 mm in size. No definite suspicious calcifications overlying the left calli al outline. Hypertrophic changes of the spine. Arthropathy of the hips. There are calcifications involving the pe lvis most of which appear vascular, however, there are approximately 8 calcifications in the right lo wer hemipelvis which could be contained within the ureter the largest measuring a diameter of 3 mm. IMPRESSION: 1. Multiple sub-5 mm right lower pole renal calculi. 2. Suspected multiple distal right ureteral calculi at the level of the UVJ..
== END ==
LOC: RADXRMAIN 09:16
PROVIDERS: ATTEND Urology
DX: N20.0 Calculus of kidney (principal)
CPT/HCPCS: 74018

== ENCOUNTER → 2021-05-03 | Outpatient (CLI) | payer MEDICARE ==
[~2021-05-03] MED LIST changes: +BAMLANIVIMAB (EUA) 700 MG, ETESEVIMAB (EUA) 1,400 MG in SODIUM CHLORIDE 0.9% 100 ML IVPB NR; -HYDROcodone/APAP 5-325MG 1 EACH TAB ONE; -HYDROcodone/APAP 5-325MG 1 EACH TAB PO ONE; -KETAMINE 10 MG/ML 20 ML VIAL ONE; -LACTATED RINGERS 1,000 ML IV SCH; -MIDAZOLAM 2 MG/2 ML VIAL ONE; -ONDANSETRON 4 MG/2 ML VIAL IVP ONE; -ONDANSETRON 4 MG/2 ML VIAL ONE; -PROPOFOL 10 MG/ML 20 ML VIAL IV ONE; +SODIUM CHLORIDE 0.9% 50 ML IVPB NR; +SODIUM CHLORIDE 0.9% 500 ML 500 ML in EMPTY BAG 1 BAG IV PRN; -fentaNYL (PF) 50 MCG/ML 2 ML AMP ONE
[2021-05-03 13:10] VITALS: RESP 16; TEMP 97.8
[2021-05-03 14:27] VITALS: BP 134/78; PULSE 65
== END ==
LOC: PROCWHC3 12:29
PROVIDERS: ATTEND Family Medicine
DX: U07.1 COVID-19 (principal)
CPT/HCPCS: 96360; J3490; M0247

== ENCOUNTER 2021-07-19 09:02 | Emergency (ER) | payer MEDICARE ==
[2021-07-19 10:08] VITALS: RESP 18
--- NOTE | 2021-07-19 11:08 | XR ---
EXAMINATION TYPE: XR humerus RT DATE OF EXAM: 07/19/2021 COMPARISON: NONE HISTORY: 66-year-old female fall and mid humerus pain TECHNIQUE: 2 views FINDINGS: There is bony irregularity of the greater tuberosity. Mild to moderate degenerative change at the AC joint. No humeral shaft fracture seen. IMPRESSION: [id number] AC joint OA and changes of chronic rotator cuff tendinopathy. No humeral shaft fract ure seen.
--- NOTE | 2021-07-19 12:57 | ED ---
Fall HPI - General Chief Complaint: Fall Stated Complaint: Fall/face injury Time Seen by Provider: 07/19/21 11:25 Source: patient, RN notes reviewed Mode of arrival: ambulatory - History of Present Illness Initial Comments: This is a 66-year-old female who presents to the emergency department for right upper arm pain following a fall. States that she tripped in her house, and l anded on the arm. Denies any symptoms such as lightheadedness or dizziness prior to the fall. Since the fall, she has had progressive pain in the right upper arm. States that it has been difficult for her to move it, specifically, it has been difficult for her to lift her arm up. Denies hitting her head or any loss of consciousness. She has not taken any medication to treat the pain at home. MD Complaint: fall Onset/Timin -: days(s) Fall From: standing Fall Witnessed: no Place Fall Occurred: home Loss of Consciousness: none Prolonged Down Time?: no Symptoms Prior to Fall: none Location - Extremities: Right: Arm Context: tripped/slipped - Related Data Home Medications Medication Instructions Recorded Confirmed metFORMIN HCL ER [Glucophage Xr] 1,500 mg PO W/SUPPER 10/10/18 07/19/21 Hydrochlorothiazide 12.5 mg PO DAILY 03/17/19 07/19/21 [hydroCHLOROthiazide] Latanoprostene Bunod [Vyzulta] 1 drop BOTH EYES HS 03/17/19 07/19/21 Multivitamins, Thera [Multivitamin 1 tab PO DAILY 06/22/20 07/19/21 (formulary)] Biotin 5 mg PO DAILY 07/19/21 07/19/21 Losartan Potassium 100 mg PO DAILY 07/19/21 07/19/21 Rosuvastatin Calcium [Crestor] 5 mg PO HS 07/19/21 07/19/21 Timolol 0.5% Ophth Soln [Timoptic 1 drop BOTH EYES BID 07/19/21 07/19/21 0.5% Ophth Soln] glipiZIDE XL [Glucotrol Xl] 5 mg PO BID-W/MEALS 07/19/21 07/19/21 Previous Rx's Medication Instructions Recorded Diclofenac Sodium [Voltaren] 50 mg PO BID PRN #14 tab 07/19/21 HYDROcodone/APAP 5-325MG [[place] 1 tab PO Q6HR PRN 3 Days #12 tab 07/19/21 5-325] Allergies Allergy/AdvReac Type Severity Reaction Status Date / Time No Known Allergies Allergy Verified 07/19/21 12:21 Review of Systems ROS Statement: Those systems with pertinent positive or pertinent negative responses have been documented in the HPI. ROS Other: All systems not noted in ROS Statement are negative. Constitutional: Denies: fever, chills ENT: Denies: ear pain, throat pain Respiratory: Denies: cough, dyspnea Cardiovascular: Denies: chest pain, palpitations Endocrine: Denies: fatigue Gastrointestinal: Denies: abdominal pain, nausea, vomiting, diarrhea Genitourinary: Denies: urgency, dysuria Musculoskeletal: Reports: other (right upper arm pain). Denies: back pain Skin: Denies: rash, lesions Neurological: Denies: headache Past Medical History Past Medical History: Diabetes Mellitus, Eye Disorder, Hypertension Additional Past Medical History / Comment(s): HX OF COLON POLYPS, GLAUCOMA, KIDNEY STONES History of Any Multi-Drug Resistant Organisms: None Reported Past Surgical History: Hysterectomy, Orthopedic Surgery, Tubal Ligation Additional Past Surgical History / Comment(s): LASER EYE SURGERY FOR GLAUCOMA. RT KNEE SX. COLONOSCOPY Past Anesthesia/Blood Transfusion Reactions: No Reported Reaction Past Psychological History: No Psychological Hx Reported Smoking Status: Never smoker Past Alcohol Use History: Occasional Past Drug Use History: None Reported - Past Family History Father Family Medical History: Cancer Additional Family Medical History / Comment(s): PROSTATE CANCER Mother Family Medical History: Cancer Additional Family Medical History / Comment(s): LUNG General Exam Limitations: no limitations General appearance: alert, in no apparent distress Head exam: Present: atraumatic, normocephalic, normal inspection Respiratory exam: Present: normal lung sounds bilaterally. Absent: respiratory distress, wheezes, rales, rhonchi, stridor Cardiovascular Exam: Present: regular rate, normal rhythm, normal heart sounds. Absent: systolic murmur, diastolic murmur, rubs, gallop, clicks Right Upper Arm exam: Present: other (Range of motion limited by pain. There is no tenderness, swelling, ecchymosis, or crepitus.) Vascular: Present: normal capillary refill. Absent: vascular compromise, Pallo Neurological exam: Present: alert, oriented X3, CN II-XII intact Psychiatric exam: Present: normal affect, normal mood Skin exam: Present: warm, dry, intact, normal color. Absent: rash Course Vital Signs 07/19/21 07/19/21 10:05 13:19 Temperature 98 F 97.8 F Pulse Rate 72 63 Respiratory 18 18 Rate Blood Pressure 172/89 164/79 O2 Sat by Pulse 98 99 Oximetry Medical Decision Making - Medical Decision Making This is a 66-year-old female who presents to emergency department for right upper arm pain after a fall. X-ray of the humerus obtained, which identified no acute fractures or other irregularities. Patient inquired as to if this could identify any problems with tendons or ligaments. Discussed that x-rays are largely intended to identify bony abnormalities, as opposed to problems with tendons or ligaments. She most likely has a contusion from the fall. If symptoms continue to persist, she is advised to discuss this with her primary care provider to see if further imaging is warranted. Patient given a three-day supply of [place], she is advised to use this sparingly and to take it only at night until she knows how it affects her. 14 pills of diclofenac provided for inflammation. She is advised to avoid using anti-inflammatories any longer than 5-7 days to avoid compromising kidney function. Patient states that she has been told that she can use anti-inflammatories for short periods of time if needed. She is advised to avoid taking ibuprofen or any other anti-inflammatori es with the diclofenac. She can take Tylenol with this. Return precautions reviewed in depth, the patient is instructed to return to the emergency department with any new, worsening, or concerning symptoms. Patient verbalized understanding. This case was discussed in detail with the attending ED physician. Presentation, findings, and treatment plan discussed in detail as well. - Radiology Data Radiology results: report reviewed, image reviewed Disposition Clinical Impression: Pain in right upper arm, Fall Disposition: HOME SELF-CARE Instructions (If sedation given, give patient instructions): Contusion in Adults (ED), Arm Pain (ED) Additional Instructions: Return to the emergency department with any new, worsening, or concerning symptoms. Do not take any other anti-inflammatories with the diclofenac. Try to avoid taking this longer than 5-7 days, as this may harm your kidneys. Only take the [place] at night until you know how it affects you, and use it sparingly. Follow up with your primary care provider in 1-2 days. Prescriptions: HYDROcodone/APAP 5-325MG [[place] 5-325] 1 tab PO Q6HR PRN 3 Days #12 tab PRN Reason: Pain Diclofenac Sodium [Voltaren] 50 mg PO BID PRN #14 tab PRN Reason: Pain Is patient prescribed a controlled substance at d/c from ED?: Yes If prescribed controlled substance>3 days was MAPS reviewed?: Prescribed <3 Days Referrals: Yulia Peters MD [Primary Care Provider] - 1-2 days
[2021-07-19 13:20] VITALS: BP 164/79; PULSE 63; TEMP 97.8
== END 2021-07-19 13:19 | disposition home or self-care (01) ==
LOC: EC 09:02
DX: M19.011 Primary osteoarthritis, right shoulder (principal); E11.9 Type 2 diabetes mellitus without complications; I10 Essential (primary) hypertension; Z79.84 Long term (current) use of oral hypoglycemic drugs; Z86.010 Personal history of colon polyps; Z87.442 Personal history of urinary calculi; Z90.710 Acquired absence of both cervix and uterus; Z98.51 Tubal ligation status
CPT/HCPCS: 99283

== ENCOUNTER → 2021-08-03 | Outpatient (CLI) | payer MEDICARE ==
--- NOTE | 2021-08-03 16:53 | BD ---
EXAMINATION TYPE: Axial Bone Density DATE OF EXAM: 08/03/2021 COMPARISON: NONE CLINICAL HISTORY: 66 year old Female. ICD-10 CODE: Z78.0 Asymptomatic post menopausal Height: 65 Weight: 202.7 FRAX RISK QUESTIONS: Alcohol (3 or more units per day): no Family History (Parent hip fracture): no Glucocorticoids (More than 3mos): no (Ex: prednisone, prednisolone, methylprednisolone, dexamethasone, and hydrocortisone). History of Fracture in Adulthood: no Secondary Osteoporosis: 1. Type 1 Diabetes: no 2. Hyperthyroidism: no 3. Menopause before 45: no 4. Malnutrition: no 5. Chronic liver disease: no Rheumatoid Arthritis: no Current Tobacco Use: no RISK FACTORS HISTORY OF: Surgery to Spine/Hip(right/left)/Wrist (right/left): no Family History of Osteoporosis: yes Active: no Diet low in dairy products/other sources of calcium: yes Postmenopausal woman: yes Lost more than 2 inches in height since high school: no MEDICATIONS: diabetic meds Additional History: EXAM MEASUREMENTS: Bone mineral densitometry was performed using the [employer] System. Bone mineral density as measured about the Lumbar spine is: ----- L1-L4(G/cm2): 1.266 T Score Values are as follows: ----- L1: 0.4 ----- L2: 1.1 ----- L3: 1.6 ----- L4: -0.2 ----- L1-L4: 0.7 Bone mineral density : baseline Bone mineral density about the R hip (g/cm2): 1.057 Bone mineral density about the L hip (g/cm2): 1.151 T Score values are as follows: -----R Neck: 0.1 -----L Neck: 0.8 -----R Total: 1.2 -----L Total: 1.6 Bone mineral density : baseline FRAX%s: The graph provided illustrates a 6.2% chance for a major osteoporotic fx and a 0.2% chance fo r the hips probability for fx in 10 years time. IMPRESSION: Normal (Values between +1 and -1 indicate normal bone mass). Consider repeating this study in 5 year s or sooner if there is some new clinical indication. NOTE: T-SCORE=SD OF THE YOUNG ADULT MEAN.
--- NOTE | 2021-08-06 11:54 | MM ---
Reason for exam: screening (asymptomatic). Last mammogram was performed 2 years and 9 months ago. History: Patient is postmenopausal. Took estrogen for 3 years beginning at age 47. Took progesterone for 3 years beginning at age 47. Physical Findings: A clinical breast exam by your physician is recommended on an annual basis and results should be correlated with mammographic findings. MG 3D Screening Mammo W/Cad Bilateral CC and MLO view(s) were taken. XCCL view(s) were taken of the left breast. Prior study comparison: November 03, 2018, bilateral MG screening mammo w CAD. March 17, 2017, bilateral MG screening mammo w CAD. There are scattered fibroglandular densities. Stable benign calcifications. There is no discrete abnormality. No significant changes when compared with prior studies. ASSESSMENT: Benign, BI-RAD 2 RECOMMENDATION: Routine screening mammogram of both breasts in 1 year.
== END | disposition home or self-care (01) ==
LOC: RADMAMWWP 07:14
PROVIDERS: ATTEND Family Medicine
DX: Z12.31 Encounter for screening mammogram for malignant neoplasm of breast (principal); Z78.0 Asymptomatic menopausal state
CPT/HCPCS: 77063; 77067; 77080

== ENCOUNTER → 2023-03-21 | Outpatient (CLI) | payer MEDICARE ==
--- NOTE | 2023-03-25 08:52 | MM ---
Reason for Exam: Screening (asymptomatic). Last mammogram was performed 1 year(s) and 8 month(s) ago. Patient History: Menarche at age 12. First Full-Term at age 22. Left ovary removed at age 47. Right ovary removed at age 47. Hysterectomy at age 47. Postmenopausal. Patient has history of breast feeding. Estrogen for 3 years from age 47 until age 50. Progesterone for 3 years from age 47 until age 50. Risk Values: Juanita 5 year model risk: 1.5%. NCI Lifetime model risk: 5.2%. Prior Study Comparison: 03/17/2017 Bilateral Screening Mammogram, [facility]. 11/03/2018 Bilateral Screening Mammogram, [facility]. 08/03/2021 Bilateral Screening Mammogram, [facility]. Tissue Density: There are scattered fibroglandular densities. Findings: Analyzed By CAD. Pattern appears symmetrical and stable. No significant interval change is evident. Chronic nodularity is present bilaterally. Benign calcification is present. No significant interval changes. No suspicious groups of microcalcifications, spiculated or lobular masses, architectural distortion or other secondary signs of malignancy are mammographically apparent. Overall Assessment: Benign, BI-RAD 2 Management: Screening Mammogram of both breasts in 1 year. A negative mammogram report should not preclude additional follow up of suspicious palpable abnormalities. Patient should continue monthly self breast exam. A clinical breast exam by your physician is recommended on an annual basis and results should be correlated with mammographic findings. Electronically signed and approved by: Jagdish Roman D.O. Radiologis
== END | disposition home or self-care (01) ==
LOC: RADMAMWWP 09:29
PROVIDERS: ATTEND Family Medicine
DX: Z12.31 Encounter for screening mammogram for malignant neoplasm of breast (principal); Z78.0 Asymptomatic menopausal state
CPT/HCPCS: 77063; 77067

== ENCOUNTER 2024-02-19 11:11 | Emergency (ER) | payer MEDICARE ==
--- NOTE | 2024-02-19 12:49 | ED ---
General Adult HPI - General Chief complaint: Dizziness Stated complaint: Dizziness Time Seen by Provider: 02/19/24 12:23 Source: patient, RN notes reviewed Mode of arrival: ambulatory Limitations: no limitations - History of Present Illness Initial comments: Patient is a 68-year-old female present to the emergency department with concerns with dizziness. Patient has had some very mild headaches over the past couple of days. Today patient felt a pop in her right temporal region which was not painful. Patient did feel a little bit dizzy following this. Patient felt it was somewhat a spinning type sensation and has near resolved. Symptoms were never severe. No severe headache. No moderate headache. No weakness or confusion. No speech problems. No visual changes. Patient states she feels close to normal. - Related Data Home Medications Medication Instructions Recorded Confirmed metFORMIN HCL ER [Glucophage Xr] 1,500 mg PO W/SUPPER 10/10/18 07/19/21 Latanoprostene Bunod [Vyzulta] 1 drop BOTH EYES HS 03/17/19 07/19/21 hydroCHLOROthiazide 12.5 mg PO DAILY 03/17/19 07/19/21 Multivitamins, Thera [Multivitamin 1 tab PO DAILY 06/22/20 07/19/21 (formulary)] Biotin 5 mg PO DAILY 07/19/21 07/19/21 Losartan Potassium 100 mg PO DAILY 07/19/21 07/19/21 Rosuvastatin Calcium [Crestor] 5 mg PO HS 07/19/21 07/19/21 Timolol 0.5% Ophth Soln [Timoptic 1 drop BOTH EYES BID 07/19/21 07/19/21 0.5% Ophth Soln] glipiZIDE XL [Glucotrol Xl] 5 mg PO BID-W/MEALS 07/19/21 07/19/21 Previous Rx's Medication Instructions Recorded Diclofenac Sodium [Voltaren] 50 mg PO BID PRN #14 tab 07/19/21 HYDROcodone/APAP 5-325MG [[place] 1 tab PO Q6HR PRN 3 Days #12 tab 07/19/21 5-325] Allergies Allergy/AdvReac Type Severity Reaction Status Date / Time No Known Allergies Allergy Verified 02/19/24 11:51 Review of Systems ROS Statement: Those systems with pertinent positive or pertinent negative responses have been documented in the HPI. ROS Other: All systems not noted in ROS Statement are negative. Constitutional: Denies: fever Eyes: Denies: eye pain, vision change ENT: Denies: ear pain Respiratory: Denies: cough, dyspnea Neurological: Reports: as per HPI. Denies: weakness, confusion Past Medical History Past Medical History: Diabetes Mellitus, Eye Disorder, Hypertension Additional Past Medical History / Comment(s): HX OF COLON POLYPS, GLAUCOMA, KIDNEY STONES History of Any Multi-Drug Resistant Organisms: None Reported Past Surgical History: Hysterectomy, Orthopedic Surgery, Tubal Ligation Additional Past Surgical History / Comment(s): LASER EYE SURGERY FOR GLAUCOMA. RT KNEE SX. COLONOSCOPY Past Anesthesia/Blood Transfusion Reactions: No Reported Reaction Past Psychological History: No Psychological Hx Reported Smoking Status: Never smoker Past Alcohol Use History: Occasional Past Drug Use History: None Reported - Past Family History Father Family Medical History: Cancer Additional Family Medical History / Comment(s): PROSTATE CANCER Mother Family Medical History: Cancer Additional Family Medical History / Comment(s): LUNG General Exam Limitations: no limitations General appearance: alert, in no apparent distress Head exam: Present: atraumatic, other (No tenderness over the temporal arteries) Eye exam: Present: normal appearance, PERRL, EOMI Neck exam: Present: normal inspection Respiratory exam: Present: normal lung sounds bilaterally Cardiovascular Exam: Present: regular rate, normal rhythm GI/Abdominal exam: Present: soft. Absent: tenderness Extremities exam: Present: normal inspection Neurological exam: Present: alert, oriented X3, CN II-XII intact. Absent: motor sensory deficit Expanded Neurological exam: Present: protecting the airway Speech: Present: fluid speech Cranial nerves: EOM's Intact: Normal, Facial Sensation: Normal Sensory exam: Upper Extremity Light Touch: Normal, Lower Extremity Light Touch: Normal Motor strength exam: RUE: 5, LUE: 5, RLE: 5, LLE: 5 Eye Response: (4) open spontaneously Motor Response: (6) obeys commands Verbal Response: (5) oriented Psychiatric exam: Present: normal affect, normal mood Skin exam: Present: normal color Course Vital Signs 02/19/24 02/19/24 11:47 13:09 Temperature 97.4 F L 97.9 F Pulse Rate 53 L 56 L Respiratory 20 18 Rate Blood Pressure 169/79 176/79 O2 Sat by Pulse 99 100 Oximetry EKG Findings - EKG Results: EKG: interpreted by CAROLINAD, sinus rhythm, normal axis, normal QRS, normal ST/T EKG shows: bradycardia Medical Decision Making - Medical Decision Making Was pt. sent in by a medical professional or institution (, TYLER, CLERICAL ADMINISTRATOR, urgent care, hospital, or alf...) When possible be specific @ -No Did you speak to anyone other than the patient for history (EMS, parent, family, police, friend...)? What history was obtained from this source @ -No Did you review nursing and triage notes (agree or disagree)? Why? @ -I reviewed and agree with nursing and triage notes Were old charts reviewed (outside hosp., previous admission, EMS record, old EKG, old radiological studies, urgent care reports/EKG's, alf records)? Report findings @ -No old charts were reviewed Differential Diagnosis (chest pain, altered mental status, abdominal pain women, abdominal pain men, vaginal bleeding, weakness, fever, dyspnea, syncope, headache, dizziness, GI bleed, back pain, seizure, CVA, palpatations, mental health, musculoskeletal)? @ -Differential Headache: Migraine, tension, cluster, carbon monoxide, central venous thrombosis, pension karma temporal arteritis, acute closure glaucoma, intercranial hemorrhage, mastoiditis, sinusitis, head injury, this is not meant to be an all-inclusive list. EKG interpreted by me (3pts min.). @ -As above X-rays interpreted by me (1pt min.). @ -None done CT interpreted by me (1pt min.). @ -CT brain without acute abnormality U/S interpreted by me (1pt. min.). @ -None done What testing was considered but not performed or refused? (CT, X-rays, U/S, labs)? Why? @ -None What meds were considered but not given or refused? Why? @ -None Did you discuss the management of the patient with other professionals (professionals i.e. , TYLER, CLERICAL ADMINISTRATOR, lab, RT, psych nurse, director of social services, beer coil cleaner, teacher, staff mine warfare officer, case investigator)? Give summary @ -No Was smoking cessation discussed for >3mins.? @ -No Was critical care preformed (if so, how long)? @ -No Were there social determinants of health that impacted care today? How? (Homelessness, low income, unemployed, alcoholism, drug addiction, transportation, low edu. Level, literacy, decrease access to med. care, halfway, rehab)? @ -No Was there de-escalation of care discussed even if they declined (Discuss DNR or withdrawal of care, Hospice)? DNR status @ -No What co-morbidities impacted this encounter? (DM, HTN, Smoking, COPD, CAD, Cancer, CVA, ARF, Chemo, Hep., AIDS, mental health diagnosis, sleep apnea, morbid obesity)? @ -None Was patient admitted / discharged? Hospital course, mention meds given and route, prescriptions, significant lab abnormalities, going to OR and other pertinent info. @ -Patient presents with mild symptoms, near resolved. Evaluation unremarkable . Patient will be discharged and recommended follow-up with vascular surgery for stenosis left internal carotid artery. Patient also recommended follow-up with her eye doctor and primary care physician Undiagnosed new problem with uncertain prognosis? @ -No Drug Therapy requiring intensive monitoring for toxicity (Heparin, Nitro, Insulin, Cardizem)? @ -No Were any procedures done? @ -No Diagnosis/symptom? @ -Headache Acute, or Chronic, or Acute on Chronic? @ -Acute Uncomplicated (without systemic symptoms) or Complicated (systemic symptoms)? @ -Default Side effects of treatment? @ -No Exacerbation, Progression, or Severe Exacerbation? @ -No Poses a threat to life or bodily function? How? (Chest pain, [place], [place], pneumonia, PE, COPD, DKA, ARF, appy, cholecystitis, CVA, Diverticulitis, Homicidal, Suicidal, threat to staff... and all critical care pts) @ -No - Lab Data Result diagrams: 02/19/24 12:52 02/19/24 12:52 Lab Results 02/19/24 02/19/24 02/19/24 Range/Units 12:52 12:52 12:52 WBC 5.3 (3.8-10.6) k/uL RBC 5.14 (3.80-5.40) m/uL Hgb 14.8 (11.4-16.0) gm/dL Hct 46.2 H (34.0-46.0) % MCV 90.0 (80.0-100.0) fL MCH 28.9 (25.0-35.0) pg MCHC 32.1 (31.0-37.0) g/dL RDW 13.6 (11.5-15.5) % Plt Count 150 (150-450) k/uL MPV 8.2 Neutrophils % 43 % Lymphocytes % 45 % Monocytes % 5 % Eosinophils % 4 % Basophils % 1 % Neutrophils # 2.3 (1.3-7.7) k/uL Lymphocytes # 2.4 (1.0-4.8) k/uL Monocytes # 0.3 (0-1.0) k/uL Eosinophils # 0.2 (0-0.7) k/uL Basophils # 0.0 (0-0.2) k/uL PT 10.9 (10.0-12.5) sec INR 1.0 (<1.2) APTT 23.1 (22.0-30.0) sec Sodium 137 (137-145) mmol/L Potassium 4.3 (3.5-5.1) mmol/L Chloride 106 (98-107) mmol/L Carbon Dioxide 29 (22-30) mmol/L Anion Gap 2 mmol/L BUN 20 H (7-17) mg/dL Creatinine 0.85 (0.52-1.04) mg/dL Est GFR (CKD-EPI)AfAm 82 (>60 ml/min/1.73 sqM) Est GFR (CKD-EPI)NonAf 71 (>60 ml/min/1.73 sqM) Glucose 117 H (74-99) mg/dL Plasma Lactic Acid Tahir (0.7-2.0) mmol/L Calcium 9.8 (8.4-10.2) mg/dL Total Bilirubin 0.4 (0.2-1.3) mg/dL AST 24 (14-36) U/L ALT 19 (4-34) U/L Alkaline Phosphatase 49 (38-126) U/L Total Protein 6.7 (6.3-8.2) g/dL Albumin 4.3 (3.5-5.0) g/dL 02/19/24 Range/Units 12:52 WBC (3.8-10.6) k/uL RBC (3.80-5.40) m/uL Hgb (11.4-16.0) gm/dL Hct (34.0-46.0) % MCV (80.0-100.0) fL MCH (25.0-35.0) pg MCHC (31.0-37.0) g/dL RDW (11.5-15.5) % Plt Count (150-450) k/uL MPV Neutrophils % % Lymphocytes % % Monocytes % % Eosinophils % % Basophils % % Neutrophils # (1.3-7.7) k/uL Lymphocytes # (1.0-4.8) k/uL Monocytes # (0-1.0) k/uL Eosinophils # (0-0.7) k/uL Basophils # (0-0.2) k/uL PT (10.0-12.5) sec INR (<1.2) APTT (22.0-30.0) sec Sodium (137-145) mmol/L Potassium (3.5-5.1) mmol/L Chloride (98-107) mmol/L Carbon Dioxide (22-30) mmol/L Anion Gap mmol/L BUN (7-17) mg/dL Creatinine (0.52-1.04) mg/dL Est GFR (CKD-EPI)AfAm (>60 ml/min/1.73 sqM) Est GFR (CKD-EPI)NonAf (>60 ml/min/1.73 sqM) Glucose (74-99) mg/dL Plasma Lactic Acid Tahir 0.9 (0.7-2.0) mmol/L Calcium (8.4-10.2) mg/dL Total Bilirubin (0.2-1.3) mg/dL AST (14-36) U/L ALT (4-34) U/L Alkaline Phosphatase (38-126) U/L Total Protein (6.3-8.2) g/dL Albumin (3.5-5.0) g/dL Disposition Clinical Impression: Headache Disposition: HOME SELF-CARE Condition: Stable Instructions (If sedation given, give patient instructions): Dizziness (ED) Additional Instructions: Please do follow-up with your primary care physician in the next day or 2 for recheck. Please also follow-up with your insurance licensing supervisor. Please also follow- up with vascular surgeon, number provided. Return for headache, weakness, confusion, worsening or changing symptoms or any other concerns. Is patient prescribed a controlled substance at d/c from ED?: No Referrals: Yulia Peters MD [Primary Care Provider] - 1-2 days Octavio Kimball DO [STAFF PHYSICIAN] - 1-2 days Time of Disposition: 15:06
[2024-02-19 13:04] LABS: Basophils % (A) 1 %; Eosinophils # (A) 0.2 k/uL (0-0.7); Eosinophils % (A) 4 %; HCT 46.2 % (34.0-46.0); HGB 14.8 gm/dL (11.4-16.0); Lymphocytes # (A) 2.4 k/uL (1.0-4.8); Lymphocytes % (A) 45 %; MCH 28.9 pg (25.0-35.0); MCHC 32.1 g/dL (31.0-37.0); Mean Platelet Volume 8.2; Monocytes # (A) 0.3 k/uL (0-1.0); Monocytes % (A) 5 %; Neutrophils # (A) 2.3 k/uL (1.3-7.7); Neutrophils % (A) 43 %; Platelet Count 150 k/uL (150-450); RBC 5.14 m/uL (3.80-5.40); RDW 13.6 % (11.5-15.5); WBC 5.3 k/uL (3.8-10.6)
[2024-02-19 13:10] VITALS: RESP 18
[2024-02-19 13:25] LABS: Partial Thromboplastin Time 23.1 sec (22.0-30.0); Prothrombin Time 10.9 sec (10.0-12.5)
[2024-02-19 13:57] LABS: ALT 19 U/L (4-34); AST 24 U/L (14-36); African American GFR (CKD) 82 (>60 ml/min/1.73 sqM); Albumin 4.3 g/dL (3.5-5.0); Alkaline Phosphatase 49 U/L (38-126); Anion Gap 2 mmol/L; Blood Urea Nitrogen 20 mg/dL (7-17); Calcium 9.8 mg/dL (8.4-10.2); Carbon Dioxide 29 mmol/L (22-30); Chloride 106 mmol/L (98-107); Glucose 117 mg/dL (74-99); Non-African American GFR(CKD) 71 (>60 ml/min/1.73 sqM); Potassium 4.3 mmol/L (3.5-5.1); Sodium 137 mmol/L (137-145); Total Bilirubin 0.4 mg/dL (0.2-1.3); Total Protein 6.7 g/dL (6.3-8.2)
--- NOTE | 2024-02-19 14:47 | CT ---
EXAMINATION TYPE: CT brain wo con CT DLP: 1033.9 mGycm, Automated exposure control for dose reduction was used. DATE OF EXAM: 02/19/2024 2:36 PM COMPARISON: None. CLINICAL INDICATION:Female, 68 years old with history of weakness, vertigo and weakness TECHNIQUE: Brain: Multiple axial CT images of the brain were obtained without IV contrast. . Coronal and sagitta l reformats reviewed. FINDINGS: Brain: Extra-axial spaces: No abnormal extra-axial fluid collections. Ventricular system: Within normal limits Cerebral parenchyma: No acute intraparenchymal hemorrhage or mass effect. The chavez-white junction is well differentiated. Scattered hypoattenuating areas are seen within the periventricular white matte r. Cerebellum: Unremarkable. Mass effect: No evidence of midline shift. Intracranial vasculature: Atherosclerotic calcifications of the intracranial vessels. Soft tissues: Normal. Calvarium/osseous structures: No depressed skull fracture. Paranasal sinuses and mastoid air cells: Clear Visualized orbits: Orbital contents are intact. IMPRESSION: 1. No acute intracranial process. 2. Nonspecific white matter changes, likely secondary to chronic small vessel ischemic disease. [facility], , 02/19/2024 2:45 PM
--- NOTE | 2024-02-19 14:53 | CT ---
EXAMINATION TYPE: CT angio head neck CT DLP: 382.6 mGycm, Automated exposure control for dose reduction was used. DATE OF EXAM: 02/19/2024 2:36 PM COMPARISON: CT brain of the same date. CLINICAL INDICATION:Female, 68 years old with history of pop, vertigo; PHH, vertigo and weakness TECHNIQUE: Axially acquired helical CT angiogram of the head and neck was obtained with contrast util izing 75 cc of Isovue-370 administered intravenously. Axial images are supplemented with 3D reconstru ctions which were post-processed at an independent workstation. NASCET criteria used. FINDINGS: CTA HEAD: No evidence of acute intracranial hemorrhage, mass effect, or midline shift. The ventricles, sulci, a nd cisterns are unremarkable. The visualized portions of the internal carotid arteries, middle cerebral arteries, anterior cerebral arteries, and posterior cerebral arteries are patent. The basilar and vertebral arteries are patent. CTA NECK: Right Carotid System: The common carotid artery and external carotid artery are patent. The carotid bifurcation demonstrate s no evidence of hemodynamically significant stenosis. The remaining portions of the internal carotid artery demonstrate normal size without significant narrowing. Left Carotid System: The common carotid artery and external carotid artery are patent. Moderate calcified and noncalcified plaque at the proximal left internal carotid artery with approximately 70% stenosis (series 501, simone ge [id number]). The remaining portions of the internal carotid artery demonstrate normal size without signif icant narrowing. Vertebral arteries are patent without evidence hemodynamically significant stenosis. Right vertebral artery is dominant. There is a three-vessel aortic arch. The origins of the great vessels are patent. No evidence of hemo dynamically significant stenosis. IMPRESSION: 1. No evidence of dissection of the cervical internal carotid arteries or vertebral arteries. No sign ificant stenosis of the right carotid arterial system. Approximately 70% stenosis of the proximal lef t internal carotid artery just after its origin secondary to calcified and noncalcified plaque. 2. No evidence of high-grade intracranial stenosis or intracranial aneurysm. [facility], , 02/19/2024 2:51 PM
[2024-02-19 15:30] VITALS: BP 163/79; PULSE 72; TEMP 97.8
== END 2024-02-19 15:30 | disposition home or self-care (01) ==
LOC: EC 11:11
DX: R51.9 Headache, unspecified (principal)
CPT/HCPCS: 36415; 93005; 80053; 83605; 85025; 85610; 85730; 70496; 70450; 70498; 99284; Q9967

== ENCOUNTER → 2024-04-08 | Outpatient (CLI) | payer MEDICARE ==
[2024-04-08 19:07] LABS: HCT 45.2 % (37.2-46.3); HGB 14.8 g/dL (12.0-15.0); MCH 28.8 pg (27.0-32.0); MCHC 32.7 g/dL (32.0-37.0); MCV 87.9 FL (80.0-97.0); Mean Platelet Volume 12.3 FL (9.5-12.2); NRBC Per 100 WBC 0 X 10*3/uL (0.00-0.01); Platelet Count 205 X 10*3/uL (140-440); RBC 5.14 X 10*6/uL (4.10-5.20); RDW 14.7 % (11.5-14.5); WBC 5.74 X 10*3/uL (4.50-10.00)
== END | disposition home or self-care (01) ==
LOC: LABPAT 14:09
PROVIDERS: ATTEND Surgery
DX: Z01.812 Encounter for preprocedural laboratory examination (principal)
CPT/HCPCS: 36415; 84132; 85027; 86850; 86900; 86901

== ENCOUNTER 2024-04-12 07:22 | Inpatient (IN) | payer MEDICARE ==
[2024-04-05 13:36] VITALS: BMI 21.1
[~2024-04-12 07:22] MED LIST changes: -BAMLANIVIMAB (EUA) 700 MG, ETESEVIMAB (EUA) 1,400 MG in SODIUM CHLORIDE 0.9% 100 ML IVPB NR; -SODIUM CHLORIDE 0.9% 50 ML IVPB NR; -SODIUM CHLORIDE 0.9% 500 ML 500 ML in EMPTY BAG 1 BAG IV PRN; +fentaNYL (PF) 50 MCG/ML 2 ML AMP IVP PRN
[2024-04-12] MEDS: IV FLUID CONTINUATION 1,000 ML IV ONE (08:11)
[2024-04-12] MEDS: ONDANSETRON 4 MG/2 ML VIAL IVP ONE (08:17)
[2024-04-12] MEDS: LACTATED RINGERS 1,000 ML IV SCH ×2 (08:18→14:53)
[2024-04-12] MEDS: DEXAMETHASONE SOD PHOSPHATE 4 MG/ML 1 ML VIAL IV ONE (08:18)
[2024-04-12] MEDS: LIDOCAINE 1% (10MG/ML) FOR IV START INTRADERMA PRN (08:18)
[2024-04-12] MEDS: MIDAZOLAM 2 MG/2 ML VIAL IV PRN (08:33)
[2024-04-12] MEDS: LIDOCAINE 1% INJ 10MG/ML (20 ML MDV) SQ ONE (08:41)
[2024-04-12] MEDS: GELATIN SPONGE,ABSORB (LARGE) 1 EACH SPONGE TOPICAL ONE (08:42)
[2024-04-12] MEDS: THROMBIN (BOVINE) 5,000 UNIT VIAL TOPICAL ONE (08:42)
[2024-04-12] MEDS ORDERED: HEPARIN SODIUM,PORCINE 10,000 UNIT/ML 1 ML VIAL ONE (08:53)
[2024-04-12] MEDS ORDERED: LIDOCAINE 1% INJ 10MG/ML (20 ML MDV) ONE (08:53)
[2024-04-12] MEDS ORDERED: ROCURONIUM 10 MG/ML (5 ML VIAL) IV ONE (08:53)
[2024-04-12] MEDS ORDERED: NEOSTIGMINE 1 MG/ML 10 ML VIAL ONE (08:53)
[2024-04-12] MEDS ORDERED: LABETALOL 5 MG/ML VIAL MDV ONE (08:53)
[2024-04-12] MEDS ORDERED: SUCCINYLCHOLINE CHLORIDE 200 MG/10 ML VIAL IV ONE (08:53)
[2024-04-12] MEDS ORDERED: fentaNYL (PF) 50 MCG/ML 2 ML AMP ONE (08:53)
[2024-04-12] MEDS ORDERED: LIDOCAINE 4% LTA KIT (4 ML) TOPICAL ONE (08:53)
[2024-04-12] MEDS ORDERED: PROPOFOL 10 MG/ML 20 ML VIAL IV ONE (08:53)
[2024-04-12] MEDS ORDERED: PHENYLEPHRINE 10 MG/ML VIAL ONE (08:53)
[2024-04-12] MEDS ORDERED: GLYCOPYRROLATE 0.2 MG/ML 2 ML VIAL ONE (08:53)
[2024-04-12] MEDS ORDERED: PROTAMINE SULFATE 10 MG/ML 5 ML VIAL ONE (08:53)
[2024-04-12] MEDS ORDERED: ePHEDrine 50 MG/ML 1 ML VIAL ONE (08:53)
--- NOTE | 2024-04-12 09:03 | P.GSHP ---
History of Present Illness H&P Date: 04/12/24 Chief Complaint: Carotid stenosis 68-year-old female with history of left ICA stenosis greater than 70% presents to the hospital for elective left carotid endarterectomy and patch angioplasty. She originally was seen in the emergency department for dizziness and right-sided pain and was worked up and found to have greater than 70% stenosis. She then underwent carotid Doppler which also demonstrated greater than 70% stenosis of the left ICA. She was then scheduled for elective left carotid endarterectomy and patch angioplasty. She denies any fevers, chills, chest pain or shortness of breath. - Review of Systems All systems: negative (What is mentioned in the HPI or past medical history) Past Medical History Past Medical History: Diabetes Mellitus, Eye Disorder, Hyperlipidemia, Hyper tension Additional Past Medical History / Comment(s): IN REMISSION FROM DIABETES SINCE WEIGHT LOSS. HX OF COLON POLYPS. GLAUCOMA. HX KIDNEY STONES. History of Any Multi-Drug Resistant Organisms: None Reported Past Surgical History: Hysterectomy, Orthopedic Surgery, Tubal Ligation Additional Past Surgical History / Comment(s): LASER EYE SURGERY FOR GLAUCOMA, RIGHT KNEE SURGERY, COLONOSCOPY. Past Anesthesia/Blood Transfusion Reactions: No Reported Reaction Smoking Status: Never smoker - Past Family History Father Family Medical History: Cancer Additional Family Medical History / Comment(s): PROSTATE CANCER. Mother Family Medical History: Cancer Additional Family Medical History / Comment(s): LUNG CANCER. Medications and Allergies Home Medications Medication Instructions Recorded Confirmed Type hydroCHLOROthiazide 12.5 mg PO DAILY 03/17/19 04/12/24 History Acetylcysteine [Nac] 1,000 mg PO DAILY 04/05/24 04/05/24 History Biotin [Ddvh-Yvck-Irtbx] 10,000 mcg PO DAILY 04/05/24 04/05/24 History Brimonidine Tartrate/Timolol 1 drop BOTH EYES BID 04/05/24 04/12/24 History [Combigan 0.2%-0.5% Eye Drops] Dorzolamide HCl/Pf [Dorzolamide 2% 1 drop BOTH EYES BID 04/05/24 04/05/24 History Eye Drop] Latanoprost [Latanoprost 0.005%] 1 drop BOTH EYES DAILY 04/05/24 04/05/24 History Multivitamins, Thera [Multivitamin 1 tab PO DAILY 04/05/24 04/05/24 History (formulary)] Ubidecarenone [Co Q-10] 200 mg PO DAILY 04/05/24 04/05/24 History Allergies Allergy/AdvReac Type Severity Reaction Status Date / Time No Known Allergies Allergy Verified 04/12/24 07:54 Surgical - Exam Vital Signs Temp Pulse Resp BP Pulse Ox 97.8 F 59 L 16 137/66 98 04/12/24 07:58 04/12/24 07:58 04/12/24 07:58 04/12/24 07:58 04/12/24 07:58 Patient Seen Date: 04/12/24 Patient Seen Time: 08:50 - General well developed, well nourished, no distress - Eyes PERRL, normal ocular movement - ENT normal pinna, normal nares - Neck no masses - Respiratory normal expansion, normal respiratory effort - Cardiovascular Rhythm: regular - Abdomen Abdomen: soft, non tender - Neurologic No focal deficits normal coordination, normal sensation - Musculoskeletal normal gait - Psychiatric oriented to time, oriented to person, oriented to place, speech is normal Assessment and Plan Assessment: Left ICA stenosis greater than 70% Plan: To the OR for elective left carotid endarterectomy and patch angioplasty Consent is obtained and in the chart. All risks, benefits and complications were discussed and all questions were answered.
[2024-04-12] MEDS: HEPARIN SODIUM (1,000 UNIT/ML) 2,000 UNIT in SODIUM CHLORIDE 0.9% 1,000 ML IRRIGATION ONE (09:37)
[2024-04-12] MEDS: ceFAZolin 2 GM in SODIUM CHLORIDE 0.9% 500 ML 500 ML IRRIGATION ONE (09:38)
[2024-04-12] MEDS: LACTATED RINGERS 1,000 ML IV ONE (10:40)
[2024-04-12] MEDS ORDERED: MAG HYDROX/AL HYDROX/SIMETH 30 ML CUP PO PRN (10:52)
[2024-04-12] MEDS ORDERED: TRIMETHOBENZAMIDE 100 MG/ML 2 ML VIAL IM PRN (10:52)
[2024-04-12] MEDS ORDERED: MORPHINE SULFATE 2 MG/ML SYRINGE IVP PRN (10:52)
[2024-04-12] MEDS ORDERED: BENZOCAINE/MENTHOL LOZENG 1 EACH LOZENGE MUCOUS MEM PRN (10:52)
--- NOTE | 2024-04-12 10:52 | P.OP ---
Description of Procedure: Date of Procedure: 04/12/2024 Preoperative Diagnosis: Left internal carotid artery stenosis Postoperative Diagnosis: Same Procedure(s) Performed: Left carotid endarterectomy with patch angioplasty Anesthesia: SNEHA Surgeon: Octavio Kimball Estimated Blood Loss (ml): 25 cc Pathology: Carotid plaque in cervical lymph nodes x 2 Condition: stable Disposition: PACU Indications for Procedure: 68-year-old female with history of severe left ICA stenosis greater than 70% presents for elective carotid endarterectomy and patch angioplasty. Description of Procedure: After written informed consent was obtained the patient all risks benefits and competitions were described the patient is brought to the operative suite and laid in a supine position. The area of the neck was prepped and draped in usual sterile fashion after appropriate anesthetic was performed per the anesthesiologist. A timeout was performed in normal fashion antibiotics were administered prior to incision. An oblique incision was then created just anterior to the sternocleidomastoid musculature with a 10 blade scalpel and dissection was carried down to the carot id sheath. The carotid sheath was then entered after facial vein was located and suture ligated in normal fashion. The common carotid, internal carotid, external carotid and superior thyroid arteries were located and dissected free in a meticulous fashion circumferentially and controlled with vessel loops. Attention was then placed to locating the vagus nerve as well as hypoglossal nerve which were both spared. Once controlled patient was administered heparin and followed with ACTs for appropriate heparinization. Once ACT was above 200 the proximal and distal aspects of the dissection were then controlled with vascular clamps. Arteriotomy was then created with 11 blade scalpel and extended with [place] Crain scissors. Cerebral oximetry was monitored throughout the entirety of the case and did not decrease more than 5 during clamping. No shunt was required and endarterectomy was then performed with a [place] and elevator. The plaque was then feathered at the distal aspect and the internal carotid artery and removed. The area was copiously irrigated with heparinized saline and all free debris was removed. A 7-0 Prolene suture was then placed to tack the distal aspect of the dissection at the internal carotid artery. A 0.8 x 8 cm bovine pericardial patch was then chosen and patch angioplasty was performed with 6-0 Prolene suture in a running fashion. Prior to last sutures being placed the inflow was released flushing any free debris out of the patch. This was reclamped and the internal carotid artery was released revealing good brisk flow and was once again reclamped. The external carotid and superior thyroid artery were then released followed by the common carotid artery to allow any free debris to be flushed into the external system. Final sutures were placed and secured. Internal carotid artery control was then released. Good pulsatile flow was noted through the patch and a Doppler was utilized demonstrating good brisk flow into the internal, external carotid arteries without any signs of obstruction. Hemostasis was then assured with Gelfoam and thrombin. A 10-Spanish CATRINA drain was then placed in normal fashion and secured with 3-0 nylon suture. The incision was then closed in a multilayer fashion after hemostasis was assured. The skin was then cleansed and dressings were placed. Patient tolerated the procedure well and was following commands and moving all extremities. Patient was then sent to PACU for recovery.
[2024-04-12] MEDS: HYDROmorphone 0.5 MG/0.5 ML SYRINGE IVP PRN (11:26)
--- NOTE | 2024-04-12 14:04 | P.ANPRN ---
Procedure Note - Anesthesia - Invasive Line Right Arterial Line Time Out Performed: Yes Date of Procedure: 04/12/24 Time of Procedure: 08:37 Location of Patient: PreOp Preparation: Sterile Prep, Sterile Dressing Arterial Line Location: Radial Ultrasound Used: No Purpose - Visualization and Identification of Vasculature: No Image Stored and Saved: No Narrative: Invasive line placement per sterile protocol utilized.
[2024-04-12] MEDS: ACETAMINOPHEN TAB 325 MG TAB PO PRN (18:50)
[2024-04-12] MEDS: HYDROcodone/APAP 5-325MG 1 EACH TAB PO PRN (23:14)
[2024-04-13 05:47] VITALS: RESP 18
[2024-04-13] MEDS: ENOXAPARIN 40 MG/0.4 ML SYRINGE SQ SCH (08:12)
[2024-04-13 08:16] VITALS: TEMP 97.9
--- NOTE | 2024-04-13 11:16 | P.CONS ---
History of Present Illness - History of Present Illness This is a pleasant 68 years old female with past medical history of left inte rnal carotid artery stenosis, she underwent elective left carotid artery enterectomy with patch angioplasty me. Today patient is doing well, denies chest pain or dyspnea, no GI/ symptoms, no headache dizziness weakness or numbness She denies smoking alcohol or illicit drugs Vital stable and she is afebrile. Labs recently done at outside facility look stable with WBC 5.7, hemoglobin 14.8 and platelet count 205 on 04/08. Sodium is 137, potassium 4.4, chloride 106, carbon dioxide 29, BUN 20, creatinine 0.8, glucose 117 Hemoglobin A1c 6.3% Liver enzymes are normal AST, ALT and bilirubin TSH is normal at 1.4 Patient is on n Ringer lactate at 80 mL/h which can be stopped Review of Systems Review of systems CONSTITUTIONAL: No fever, no malaise, no fatigue. HEENT: No recent visual problems or hearing problems. Denied any sore throat. CARDIOVASCULAR: No orthopnea, PND, no palpitations, no syncope. PULMONARY: No shortness of breath, no cough, no hemoptysis. GASTROINTESTINAL: No diarrhea, no nausea, no vomiting, no abdominal pain. Normoactive bowel sounds. NEUROLOGICAL: No headaches, no weakness, no numbness. HEMATOLOGICAL: Denies any bleeding or petechiae. GENITOURINARY: Denies any burning micturition, frequency, or urgency. MUSCULOSKELETAL/RHEUMATOLOGICAL: Denies any joint pain, swelling, or any muscle pain. ENDOCRINE: Denies any polyuria or polydipsia. Past Medical History Past Medical History: Diabetes Mellitus, Eye Disorder, Hyperlipidemia, Hypertension Additional Past Medical History / Comment(s): IN REMISSION FROM DIABETES SINCE WEIGHT LOSS. HX OF COLON POLYPS. GLAUCOMA. HX KIDNEY STONES. History of Any Multi-Drug Resistant Organisms: None Reported Past Surgical History: Hysterectomy, Orthopedic Surgery, Tubal Ligation Additional Past Surgical History / Comment(s): LASER EYE SURGERY FOR GLAUCOMA, RIGHT KNEE SURGERY, COLONOSCOPY. Past Anesthesia/Blood Transfusion Reactions: No Reported Reaction Smoking Status: Never smoker - Past Family History Father Family Medical History: Cancer Additional Family Medical History / Comment(s): PROSTATE CANCER. Mother Family Medical History: Cancer Additional Family Medical History / Comment(s): LUNG CANCER. Medications and Allergies Home Medications Medication Instructions Recorded Confirmed Type hydroCHLOROthiazide 12.5 mg PO DAILY 03/17/19 04/12/24 History Acetylcysteine [Nac] 1,000 mg PO DAILY 04/05/24 04/05/24 History Biotin [Uxfs-Nkhk-Zvzun] 10,000 mcg PO DAILY 04/05/24 04/05/24 History Brimonidine Tartrate/Timolol 1 drop BOTH EYES BID 04/05/24 04/12/24 History [Combigan 0.2%-0.5% Eye Drops] Dorzolamide HCl/Pf [Dorzolamide 2% 1 drop BOTH EYES BID 04/05/24 04/05/24 History Eye Drop] Latanoprost [Latanoprost 0.005%] 1 drop BOTH EYES DAILY 04/05/24 04/05/24 History Multivitamins, Thera [Multivitamin 1 tab PO DAILY 04/05/24 04/05/24 History (formulary)] Ubidecarenone [Co Q-10] 200 mg PO DAILY 04/05/24 04/05/24 History Allergies Allergy/AdvReac Type Severity Reaction Status Date / Time No Known Allergies Allergy Verified 04/12/24 07:54 Physical Exam Vitals: Vital Signs Temp Pulse Pulse Resp BP BP BP 04/13/24 08:17 58 L 18 04/13/24 08:16 97.9 F 58 L 18 98/59 04/13/24 04:00 98.1 F 66 18 120/75 04/13/24 00:00 97.8 F 65 16 115/71 04/12/24 20:00 98.3 F 67 18 113/70 98/61 04/12/24 16:43 97.8 F 65 18 145/66 04/12/24 13:47 97.9 F 58 L 18 136/70 04/12/24 13:00 53 L 14 136/65 04/12/24 12:45 59 L 14 116/58 04/12/24 12:30 57 L 16 119/58 04/12/24 12:15 65 16 136/72 151/55 04/12/24 12:00 54 L 16 135/64 155/60 04/12/24 11:45 54 L 16 143/69 156/62 04/12/24 11:30 58 L 16 133/67 148/59 04/12/24 11:26 58 L 16 133/63 147/56 04/12/24 11:11 59 L 16 141/67 145/54 04/12/24 10:56 97 F L 67 16 143/56 Pulse Ox 04/13/24 08:17 04/13/24 08:16 97 04/13/24 04:00 99 04/13/24 00:00 98 04/12/24 20:00 98 04/12/24 16:43 99 04/12/24 13:47 100 04/12/24 13:00 96 04/12/24 12:45 92 L 04/12/24 12:30 96 04/12/24 12:15 100 04/12/24 12:00 100 04/12/24 11:45 100 04/12/24 11:30 100 04/12/24 11:26 100 04/12/24 11:11 100 04/12/24 10:56 100 Intake and Output 04/12/24 04/13/24 04/13/24 22:59 06:59 14:59 Intake Total 562 780 240 Output Total 20 710 700 Balance 542 70 -460 Intake: Intake, IV Titration 240 Amount Lactated Ringers 1,000 ml 240 @ 20 mls/hr IV .Q24H [facility] Rx#:[id number] Oral 562 540 240 Output: Drainage 20 10 Left Neck 20 10 Urine 700 700 Uretheral (Love) 700 700 Other: Voiding Method Indwelling Catheter Indwelling Catheter Toilet # Voids 1 2 Weight 63.7 kg GENERAL: The patient is alert and oriented x3, not in any acute distress. Well developed, well nourished. -HEENT: Pupils are round and equally reacting to light. EOMI. No scleral icterus. No conjunctival pallor. Normocephalic, atraumatic. No pharyngeal er ythema. No thyromegaly. Left neck wound with dressing in place CARDIOVASCULAR: S1 and S2 present. No murmurs, rubs, or gallops. PULMONARY: Chest is clear to auscultation, no wheezing , no crackles. ABDOMEN: Soft, nontender, nondistended, normoactive bowel sounds. No palpable organomegaly. MUSCULOSKELETAL: No joint swelling or deformity. EXTREMITIES: No cyanosis, clubbing, or pedal edema. NEUROLOGICAL: Gross neurological examination did not reveal any focal deficits. SKIN: No rashes. no petechiae. Assessment and Plan Assessment: Left internal carotid artery stenosis status post left endarterectomy and left carotid artery patch angioplasty. Diabetes mellitus Hypertension Hyperlipidemia Plan: Patient currently medically stable Labs and vitals reviewed Patient's wants to be discharged home today. From medical perspective patient can be discharged and she is medically stable. However she needs close outpatient follow-up. Patient instructed to follow-up with her PCP in 1 week and she agrees
[2024-04-13 11:43] VITALS: BP 133/70; PULSE 65
--- NOTE | 2024-04-13 12:48 | P.DS ---
Providers Date of admission: 04/12/24 07:22 Expected date of discharge: 04/13/24 Attending physician: Octavio Kimball, DO Octavio Kimball Consults: 04/12/24 10:55 Consult Physician Routine Consulting Provider: Yulia Peters Consult Reason/Comments: medical management Do you want consulting provider notified?: Yes Primary care physician: Yulia Peters - Discharge Diagnosis(es) (1) Left carotid artery stenosis Current Visit: Yes Status: Acute Hospital Course: Patient was admitted to the hospital for elective carotid endarterectomy which was performed without incident on April 12, 2024. Postoperatively the patient did well. The following day the patient was awake and alert. No neur ological deficits were noted. Previously placed drain was removed. Patient was then dismissed from the hospital. All instructions were reviewed with the patient. She was asked to initiate an 81 mg aspirin tablet daily and to follow- up with Dr. Kimball in the office in 1 to 2 weeks, as previously scheduled. Assessment: Status post left carotid endarterectomy. Procedures: Left carotid endarterectomy with patch angioplasty. Patient Condition at Discharge: Good Plan - Discharge Summary Discharge Rx Participant: No New Discharge Prescriptions: No Action hydroCHLOROthiazide 12.5 mg PO DAILY Multivitamins, Thera [Multivitamin (formulary)] 1 tab PO DAILY Brimonidine Tartrate/Timolol [Combigan 0.2%-0.5% Eye Drops] 1 drop BOTH EYES BID Acetylcysteine [Nac] 1,000 mg PO DAILY Dorzolamide HCl/Pf [Dorzolamide 2% Eye Drop] 1 drop BOTH EYES BID Ubidecarenone [Co Q-10] 200 mg PO DAILY Latanoprost [Latanoprost 0.005%] 1 drop BOTH EYES DAILY Biotin [Vqbr-Ktzz-Wwrrj] 10,000 mcg PO DAILY Discharge Medication List hydroCHLOROthiazide 12.5 mg PO DAILY 03/17/19 [History] Acetylcysteine [Nac] 1,000 mg PO DAILY 04/05/24 [History] Biotin [Hruf-Cdxj-Ahsqs] 10,000 mcg PO DAILY 04/05/24 [History] Brimonidine Tartrate/Timolol [Combigan 0.2%-0.5% Eye Drops] 1 drop BOTH EYES BID 04/05/24 [History] Dorzolamide HCl/Pf [Dorzolamide 2% Eye Drop] 1 drop BOTH EYES BID 04/05/24 [History] Latanoprost [Latanoprost 0.005%] 1 drop BOTH EYES DAILY 04/05/24 [History] Multivitamins, Thera [Multivitamin (formulary)] 1 tab PO DAILY 04/05/24 [History] Ubidecarenone [Co Q-10] 200 mg PO DAILY 04/05/24 [History]
== END 2024-04-13 13:21 | disposition home or self-care (01) | DRG 39 ==
LOC: 2ORMAIN 07:22 → 3SCARD 13:11
PROVIDERS: ADMIT Surgery; ATTEND Surgery
PROC: 03UL3KZ Supplement Left Internal Carotid Artery with Nonautologous Tissue Substitute, Percutaneous Approach (ICD-10-PCS; 2024-04-12)
PROC: 07B23ZX Excision of Left Neck Lymphatic, Percutaneous Approach, Diagnostic (ICD-10-PCS; 2024-04-12)
PROC: 03HY32Z Insertion of Monitoring Device into Upper Artery, Percutaneous Approach (ICD-10-PCS; 2024-04-12)
PROC: 4A133B1 Monitoring of Arterial Pressure, Peripheral, Percutaneous Approach (ICD-10-PCS; 2024-04-12)
PROC: 4A133J1 Monitoring of Arterial Pulse, Peripheral, Percutaneous Approach (ICD-10-PCS; 2024-04-12)
PROC: 03CL0ZZ Extirpation of Matter from Left Internal Carotid Artery, Open Approach (ICD-10-PCS; principal; 2024-04-12 09:15)
DX: I65.22 Occlusion and stenosis of left carotid artery (principal); E11.9 Type 2 diabetes mellitus without complications; E78.5 Hyperlipidemia, unspecified; I10 Essential (primary) hypertension; Z79.899 Other long term (current) drug therapy; Z86.0100 Personal history of colon polyps, unspecified; Z87.442 Personal history of urinary calculi; Z90.710 Acquired absence of both cervix and uterus; Z98.51 Tubal ligation status
CPT/HCPCS: 88304; 88305